=== PATIENT | male | born 1955 | race Caucasian/White ===

== ENCOUNTER 2017-06-05 21:52 | Inpatient (IN) | payer BC ==
[~2017-06-05] VITALS: Ht 182.9 cm; Wt 112.5 kg
[~2017-06-05 21:52] MED LIST: ALBU0.63 NEB; BENZ100 PO; DESL5TAB4 PO; LEVA750T PO; METO1TAB42 PO; PRED20 PO; QUIN20TA4 PO
[2017-06-05 21:59] VITALS: BP 175/108; PULSE 104; RESP 14; TEMP 98.7; O2SAT 97
[2017-06-05 22:13] VITALS: BP_SYST 134; BP_SYST 135; BP_DIAS 81; BP_DIAS 84
--- NOTE | 2017-06-05 22:13 | PD ---
HPI Chief Complaint: Chest pressure Time Seen by Provider: 21:56 Travel History International Travel<30 days: No Contact w/Intl Traveler<30days: No Traveled to known affect area: No History of Present Illness HPI The patient is a 62-year-old male who presents to the emergency department via EMS for chest pressure. The patient states he is currently under a lot of stress, was recently in [place] with his daughter who is having medical problems. The patient then received a phone call from his stating she may need to have back surgery once again and he drove from [place] to [place] last night. The patient states he had approximately 4 Mountain Dew kick start drinks while traveling. The patient then developed palpitations and some dizziness earlier today. The patient took a nap for approximately 1 hour, and then got up and started working on his bike. The patient then developed some chest pressure that radiated to the neck and into the jaw bilaterally with diaphoresis. He also had some mild shortness of breath. The patient sat down on the couch and the symptoms did improve. The patient does have a history of hypertension but did not take his medications for high blood pressure last night or this morning. He did take losartan approximately 1 hour prior to arrival. He does have a history of hypertension but denies any history of hyperlipidemia, tobacco use, diabetes, or known CAD. The patient does have a history of sarcoidosis. He did complain of mild shortness of breath but denies any history of pulmonary embolism or DVT. He denies any significant edema to the lower extremities. PFSH Past Medical History Hypertension: Yes Respiratory: Yes (SARCOIDOSIS) Social History Alcohol Use: Yes (occasionally) Tobacco Use: No Substance Use: No Allergies-Medications (Allergen,Severity, Reaction): Coded Allergies: penicillin G (Unverified Allergy, Intermediate, ITCHING, 06/05/17) Reported Meds & Prescriptions Reported Meds & Active Scripts Active Reported Belviq (Lorcaserin) 10 Mg Tab 20 Mg PO DAILY Pantoprazole (Pantoprazole Sodium) 40 Mg Tab 40 Mg PO DAILY Desloratadine 5 Mg Tab 5 Mg PO DAILY Losartan (Losartan Potassium) 50 Mg Tab 50 Mg PO BID Review of Systems Except as stated in HPI: all other systems reviewed are Neg General / Constitutional: No: Fever HENT: Positive: Lightheadedness Cardiovascular: Positive: Chest Pain or Discomfort, Palpitations, Diaphoresis Respiratory: Positive: Shortness of Breath Gastrointestinal: No: Nausea, Vomiting, Abdominal Pain Musculoskeletal: No: Weakness, Edema Neurologic: Positive: Dizziness, No: Weakness, Focal Abnormalities, Paresthesia , Sensory Disturbance Physical Exam Narrative GENERAL: Awake, alert, pleasant 8-year-old male who appears his stated age and is in no acute respiratory distress. SKIN: Focused skin assessment warm/dry. HEAD: Atraumatic. Normocephalic. EYES: No injection or drainage. ENT: No nasal bleeding or discharge. Mucous membranes pink and moist. NECK: Trachea midline. No JVD. CARDIOVASCULAR: Regular, tachycardic with a heart rate of 105. RESPIRATORY: No accessory muscle use. Clear to auscultation. Breath sounds equal bilaterally. GASTROINTESTINAL: Abdomen soft, non-tender, nondistended. MUSCULOSKELETAL: No obvious deformities. No clubbing. No cyanosis. No edema. Calves are soft bilaterally. NEUROLOGICAL: Awake and alert. No obvious cranial nerve deficits. Motor grossly within normal limits. Normal speech. PSYCHIATRIC: Appropriate mood and affect; insight and judgment normal. Data Data Last Documented VS Vital Signs Date Time Temp Pulse Resp B/P (MAP) Pulse Ox O2 Delivery O2 Flow Rate FiO2 06/05/17 22:13 97 Nasal Cannula 2.00 06/05/17 22:13 135/84 (101) 134/81 (98) 06/05/17 21:59 98.7 104 14 Orders Orders Electrocardiogram (06/05/17 22:06) Ckmb (Isoenzyme) Profile (06/05/17 22:06) Complete Blood Count With Diff (06/05/17 22:06) Comprehensive Metabolic Panel (06/05/17 22:06) Magnesium (Mg) (06/05/17 22:06) Prothrombin Time / Inr (Pt) (06/05/17 22:06) Act Partial Throm Time (Ptt) (06/05/17 22:06) Troponin I (06/05/17 22:06) Chest, Single Ap (06/05/17 22:06) Ecg Monitoring (06/05/17 22:06) Bilateral Bp Monitoring (06/05/17 22:06) Iv Access Insert/Monitor (06/05/17 22:06) Oximetry (06/05/17 22:06) Oxygen Administration (06/05/17 22:06) Aspirin Chew (Aspirin Chew) (06/05/17 22:15) Nitroglycerin 2% Oint (Nitroglycerin 2% (06/05/17 22:15) Sodium Chloride 0.9% Flush (Ns Flush) (06/05/17 22:15) Sodium Chlorid 0.9% 500 Ml Inj (Ns 500 M (06/05/17 22:15) Ct Pulmonary Angiogram (06/05/17 22:06) CKMB (06/05/17 22:30) CKMB% (06/05/17 22:30) Potassium Chloride (Kcl) (06/06/17 00:00) Iohexol 350 Inj (Omnipaque 350 Inj) (06/06/17 00:15) Admit Order (Ed Use Only) (06/06/17 00:48) Labs Laboratory Tests Test 06/05/17 22:30 White Blood Count 8.7 TH/MM3 Red Blood Count 5.27 MIL/MM3 Hemoglobin 15.8 GM/DL Hematocrit 46.9 % Mean Corpuscular Volume 89.0 FL Mean Corpuscular Hemoglobin 30.0 PG Mean Corpuscular Hemoglobin Concent 33.7 % Red Cell Distribution Width 13.3 % Platelet Count 205 TH/MM3 Mean Platelet Volume 8.9 FL Neutrophils (%) (Auto) 65.0 % Lymphocytes (%) (Auto) 22.2 % Monocytes (%) (Auto) 9.9 % Eosinophils (%) (Auto) 1.6 % Basophils (%) (Auto) 1.3 % Neutrophils # (Auto) 5.7 TH/MM3 Lymphocytes # (Auto) 1.9 TH/MM3 Monocytes # (Auto) 0.9 TH/MM3 Eosinophils # (Auto) 0.1 TH/MM3 Basophils # (Auto) 0.1 TH/MM3 CBC Comment DIFF FINAL Differential Comment Prothrombin Time 10.4 SEC Prothromb Time International Ratio 1.0 RATIO Activated Partial Thromboplast Time 25.4 SEC Blood Urea Nitrogen 20 MG/DL Creatinine 1.09 MG/DL Random Glucose 144 MG/DL Total Protein 7.2 GM/DL Albumin 3.2 GM/DL Calcium Level 9.6 MG/DL Magnesium Level 2.0 MG/DL Alkaline Phosphatase 120 U/L Aspartate Amino Transf (AST/SGOT) 37 U/L Alanine Aminotransferase (ALT/SGPT) 57 U/L Total Bilirubin 0.4 MG/DL Sodium Level 141 MEQ/L Potassium Level 3.3 MEQ/L Chloride Level 108 MEQ/L Carbon Dioxide Level 24.3 MEQ/L Anion Gap 9 MEQ/L Estimat Glomerular Filtration Rate 69 ML/MIN Total Creatine Kinase 170 U/L Creatine Kinase MB 2.8 NG/ML Troponin I 0.07 NG/ML MDM Medical Decision Making Medical Screen Exam Complete: Yes Emergency Medical Condition: Yes Medical Record Reviewed: Yes Interpretation(s) EKG reveals sinus tachycardia with a heart rate of 105. Last Impressions Chest X-Ray 06/05/172205 Signed Impressions: Service Date/Time: Monday, June 05, 2017 22:27 - CONCLUSION: No acute cardiopulmonary disease demonstrated. Alvarez Pena MD CT pulmonary angiogram reveals scattered interstitial densities could be infectious or inflammatory. Biapical densities greater left apex measuring 1.7 cm, likely scarring. Follow-up CT chest in 3 months recommended for stability. No evidence for pulmonary embolism. Mediastinal adenopathy likely secondary to patient's known sarcoidosis. Right adrenal nodule likely adenoma. Laboratory Tests Test 06/05/17 22:30 White Blood Count 8.7 TH/MM3 Red Blood Count 5.27 MIL/MM3 Hemoglobin 15.8 GM/DL Hematocrit 46.9 % Mean Corpuscular Volume 89.0 FL Mean Corpuscular Hemoglobin 30.0 PG Mean Corpuscular Hemoglobin Concent 33.7 % Red Cell Distribution Width 13.3 % Platelet Count 205 TH/MM3 Mean Platelet Volume 8.9 FL Neutrophils (%) (Auto) 65.0 % Lymphocytes (%) (Auto) 22.2 % Monocytes (%) (Auto) 9.9 % Eosinophils (%) (Auto) 1.6 % Basophils (%) (Auto) 1.3 % Neutrophils # (Auto) 5.7 TH/MM3 Lymphocytes # (Auto) 1.9 TH/MM3 Monocytes # (Auto) 0.9 TH/MM3 Eosinophils # (Auto) 0.1 TH/MM3 Basophils # (Auto) 0.1 TH/MM3 CBC Comment DIFF FINAL Differential Comment Prothrombin Time 10.4 SEC Prothromb Time International Ratio 1.0 RATIO Activated Partial Thromboplast Time 25.4 SEC Blood Urea Nitrogen 20 MG/DL Creatinine 1.09 MG/DL Random Glucose 144 MG/DL Total Protein 7.2 GM/DL Albumin 3.2 GM/DL Calcium Level 9.6 MG/DL Magnesium Level 2.0 MG/DL Alkaline Phosphatase 120 U/L Aspartate Amino Transf (AST/SGOT) 37 U/L Alanine Aminotransferase (ALT/SGPT) 57 U/L Total Bilirubin 0.4 MG/DL Sodium Level 141 MEQ/L Potassium Level 3.3 MEQ/L Chloride Level 108 MEQ/L Carbon Dioxide Level 24.3 MEQ/L Anion Gap 9 MEQ/L Estimat Glomerular Filtration Rate 69 ML/MIN Total Creatine Kinase 170 U/L Creatine Kinase MB 2.8 NG/ML Troponin I 0.07 NG/ML Differential Diagnosis Differential diagnosis includes acute coronary syndrome, pulmonary embolism, esophageal spasm, pericarditis, caffeine toxicity, GERD, sarcoidosis exacerbation, pericardial effusion. Narrative Course IV was established, labs are drawn and sent, and the patient was placed on cardiac telemetry monitoring and continuous pulse oximetry monitoring. EKG was ordered and interpreted. The patient was administered aspirin 162 mg orally and nitro paste to the chest wall with IV fluids. Troponin and CPK level were sent to lab. CT pulmonary angiogram was ordered for chest pressure with shortness of breath and tachycardia after prolonged travel. The patient's potassium is low at 3.3, was replaced orally. The patient's troponin was elevated at 0.07. CT pulmonary angiogram is negative for PE. The patient does have a history of hypertension with chest pressure radiating to the neck, and diaphoresis with shortness of breath. Patient will need serial cardiac enzymes and possible evaluation by cardiology if he rules in with increasing troponin levels. The patient's primary physician is Dr. Walter, [facility] Physician Communication Physician Communication [facility] I discussed the patient with Dr. Mistry who agrees with admission. Diagnosis Primary Impression: Non-ST elevation MD (NSTEMI) Admitting Information Admitting Physician Requests: Admit Condition: Stable John Tillman MD Jun 05, 2017 22:13
[2017-06-05] MEDS ORDERED: SODIUM CHLORIDE 0.9% FLUSH 10 ML FLUSH IVF PRN (22:15)
[2017-06-05] MEDS ORDERED: ASPIRIN 81 MG CHEW TAB PO ONE (22:15)
[2017-06-05] MEDS ORDERED: SODIUM CHLORID 0.9% 500 ML INJ 500 ML IV ONE (22:15)
[2017-06-05] MEDS ORDERED: NITROGLYCERIN 2% OINT 1 GM PACKET TOP ONE (22:15)
[2017-06-05] MEDS ORDERED: PANT40TA3 PO (22:23)
[2017-06-05] MEDS ORDERED: LOSA50TA PO (22:23)
[2017-06-05] MEDS ORDERED: LORC10TA24 PO (22:23)
[2017-06-05] MEDS ORDERED: DESL5TAB4 PO (22:23)
--- NOTE | 2017-06-05 22:52 | RADRPT ---
EXAM DATE/TIME: 06/05/2017 22:27 [facility] COMPARISON: No previous studies available for comparison. INDICATIONS : Chest pain. MEDICAL HISTORY : Hypertension. Sarcoidosis. SURGICAL HISTORY : None. ENCOUNTER: Initial ACUITY: 1 day PAIN SCORE: 2/10 LOCATION: chest FINDINGS: A single view of the chest demonstrates the lungs to be symmetrically aerated without evidence of mas s, infiltrate or effusion. The cardiomediastinal contours are unremarkable. Osseous structures are intact. CONCLUSION: No acute cardiopulmonary disease demonstrated. Alvarez Pena MD on June 05, 2017 at 22:49 Board Certified Radiologist. This report was verified electronically.
[2017-06-05 22:53] LABS: AUTOMATED NEUTROPHIL # 5.7 TH/MM3 (1.8-7.7); BASOPHIL # 0.1 TH/MM3 (0-0.2); BASOPHIL % 1.3 % (0.0-2.0); EOSINOPHIL # 0.1 TH/MM3 (0-0.4); EOSINOPHIL % 1.6 % (0.0-4.0); HEMATOCRIT 46.9 % (39.0-51.0); HEMOGLOBIN 15.8 GM/DL (13.0-17.0); LYMPH % 22.2 % (9.0-44.0); LYMPHOCYTE # 1.9 TH/MM3 (1.0-4.8); MEAN CORPUSCULAR HGB CONC 33.7 % (32.0-36.0); MEAN PLATELET VOLUME 8.9 FL (7.0-11.0); MONO % 9.9 % (0.0-8.0); MONOCYTE # 0.9 TH/MM3 (0-0.9); PLATELET COUNT 205 TH/MM3 (150-450); RED BLOOD COUNT 5.27 MIL/MM3 (4.50-5.90); RED CELL DISTRIBUTION WIDTH 13.3 % (11.6-17.2); WHITE BLOOD COUNT 8.7 TH/MM3 (4.0-11.0)
[2017-06-05 23:00] VITALS: BP 119/80; PULSE 90; RESP 22; O2SAT 98
[2017-06-05 23:02] LABS: PROTHROMBIN TIME - PATIENT 10.4 SEC (9.8-11.6)
[2017-06-05 23:05] LABS: ALBUMIN 3.2 GM/DL (3.4-5.0); AST (GOT) 37 U/L (15-37); BICARBONATE 24.3 MEQ/L (21.0-32.0); BLOOD UREA NITROGEN 20 MG/DL (7-18); CALCIUM 9.6 MG/DL (8.5-10.1); CHLORIDE 108 MEQ/L (98-107); CREATININE 1.09 MG/DL (0.60-1.30); GLOMERULAR FILTRATION RATE 69 ML/MIN (>89); GLUCOSE,RANDOM 144 MG/DL (74-106); SODIUM (NA) 141 MEQ/L (136-145)
[2017-06-05 23:06] LABS: ALT (GPT) 57 U/L (12-78)
[2017-06-05 23:10] LABS: ALKALINE PHOSPHATASE 120 U/L (45-117); TOTAL BILIRUBIN ADULT 0.4 MG/DL (0.2-1.0); TOTAL PROTEIN 7.2 GM/DL (6.4-8.2); TROPONIN I 0.07 NG/ML (0.02-0.05)
[2017-06-06] VITALS (11 sets, daily range): BP systolic 107–154; BP diastolic 60–91; PULSE 57–82; RESP 16–20; TEMP 97.6–98.4; O2SAT 94–98
[2017-06-06] MEDS ORDERED: POTASSIUM CHLORIDE 20 MEQ CONTROLLED RELEASE TAB PO ONE
[2017-06-06] MEDS ORDERED: IOHEXOL 350 MG/ML 10 ML VIAL (for RAD DIAG) IVCONTRAST ONE (00:15)
--- NOTE | 2017-06-06 00:28 | RADRPT ---
EXAM DATE/TIME: 06/06/2017 00:13 This report includes an Addendum and supersedes previous reports for this exam. [facility] COMPARISON: CHEST SINGLE AP, June 05, 2017, 22:27. INDICATIONS : Chest pain, shortness of breath. IV CONTRAST: 75 cc Omnipaque 350 (iohexol) IV RADIATION DOSE: 12.53 CTDIvol (mGy) MEDICAL HISTORY : Hypertension. Sarcoidosis. SURGICAL HISTORY : None. ENCOUNTER: Initial ACUITY: 2 days PAIN SCALE: 8/10 LOCATION: chest TECHNIQUE: Volumetric scanning of the chest was performed using a pulmonary embolism protocol MIP images were re constructed. Using automated exposure control and adjustment of the mA and/or kV according to patien t size, radiation dose was kept as low as reasonably achievable to obtain optimal diagnostic quality images. DICOM format image data is available electronically for review and comparison. Follow-up recommendations for detected pulmonary nodules are based at a minimum on nodule size and pa tient risk factors according to Fleischner Society Guidelines. FINDINGS: PULMONARY ARTERIES: No filling defects are seen in the pulmonary arteries through the segmental level. LUNGS: There is no consolidation or pneumothorax . No concerning pulmonary nodule is visualized. Scattered interstitial densities in the upper lobes. Apical parenchymal densities greater left apex measuring 1 .7 x 1.2 cm. PLEURAE: There is no pleural thickening or pleural effusion. MEDIASTINUM: There is good visualization of the great vessels of the middle mediastinum. Prominent mediastinal rommel nopathy including distal right paratracheal measuring 1.27 her short axis. Right hilar adenopathy nick sures 2.3 cm. Subcarinal adenopathy measures 1.8 cm. MUSCULOSKELETAL: Within normal limits for patient age. MISCELLANEOUS: The visualized upper abdominal organs demonstrate right adrenal nodule measuring 2.4 cm.. CONCLUSION: 1. Scattered interstitial densities could be infectious or inflammatory. 2. Biapical densities greater left apex measuring 1.7 cm, likely scarring. Followup CT chest in 3 mon ths recommended for stability. 3. No evidence for pulmonary embolism. 4. Mediastinal adenopathy likely secondary to patient's known sarcoidosis. 5. Right adrenal nodule likely adenoma. Kris Martínez MD on June 06, 2017 at 0:22 Board Certified Radiologist. This report was verified electronically. ADDENDUM: Discussed the above study with Dr. Alvarez Alexandre from pulmonology. He informed me that the patient had a prior CT scan on an outpatient basis. Patient did in fact have a prior CT from 09-22-[address] [facility]. The nodular densities and hilar adenopathy described above were present previously a nd are unchanged. The nodule in the right adrenal gland is also stable. Boubacar Metz MD on June 06, 2017 at 17:57 Board Certified Radiologist. This report was verified electronically.
[2017-06-06] MEDS ORDERED: SODIUM CHLORIDE 0.9% FLUSH 10 ML FLUSH IV FLUSH PRN ×2 (01:00→15:15)
[2017-06-06] MEDS ORDERED: SENNOSIDES 8.6 MG TAB PO PRN (01:00)
[2017-06-06] MEDS ORDERED: BISACODYL 10 MG SUPP RECTAL PRN (01:00)
[2017-06-06] MEDS ORDERED: MAGNESIUM HYDROXIDE SUSP 30 ML CUP PO PRN (01:00)
[2017-06-06] MEDS ORDERED: NALOXONE HCL 0.4 MG/ML AMP IV PUSH PRN (01:00)
[2017-06-06] MEDS ORDERED: LACTULOSE SYRUP 20 GM/30 ML CUP PO PRN (01:00)
[2017-06-06] MEDS ORDERED: PANTOPRAZOLE SODIUM 40 MG VIAL IV PUSH ONE (01:45)
--- NOTE | 2017-06-06 01:58 | HHI.HP ---
HPI Service [facility] Primary Care Physician Aman Walter MD Admission Diagnosis NSTEMI, elevated troponin Diagnoses: Travel History International Travel<30 Days: No Contact w/Intl Traveler <30 Da: No Traveled to Known Affected Are: No History of Present Illness 62-year-old male with a past medical history significant for sarcoidosis, hypertension and GERD presents to the emergency department for evaluation of chest pain. The patient drove down from [place] last night and drank for kick start energy drinks. He arrived to [facility] around 10 AM and had a burning sensation in his chest which he thought was likely reflux. He began to have heart palpitations but then took a nap. Upon waking he was working around the house when he noticed jaw pain followed by dizziness. While watching television the patient then had an episode of crushing, substernal chest pain/ pressure with accompanying shortness of breath and diaphoresis. He reports the episode lasted approximately 1-2 minutes. He had 3 total episodes and his called 911 for further evaluation. He denies any abdominal pain. No fever/ chills, no nausea/vomiting/diarrhea. No lateralizing signs/symptoms. Review of Systems Except as stated in HPI: all other systems reviewed are Neg Past Family Social History Past Medical History Sarcoidosis Hypertension GERD Past Surgical History Lung biopsy Right knee arthroscopic 2 L4-L5 discectomy Deviated septum Reported Medications Reported Meds & Active Scripts Active Reported Belviq (Lorcaserin) 10 Mg Tab 20 Mg PO DAILY Pantoprazole (Pantoprazole Sodium) 40 Mg Tab 40 Mg PO DAILY Desloratadine 5 Mg Tab 5 Mg PO DAILY Losartan (Losartan Potassium) 50 Mg Tab 50 Mg PO BID Allergies: Coded Allergies: penicillin G (Unverified Allergy, Intermediate, ITCHING, 06/05/17) Family History Mother with CVA Social History Denies tobacco. Rare alcohol. Denies illicit drugs. Physical Exam Vital Signs Vital Signs Date Time Temp Pulse Resp B/P (MAP) Pulse Ox O2 Delivery O2 Flow Rate FiO2 06/05/17 22:13 97 Nasal Cannula 2.00 06/05/17 22:13 98 Nasal Cannula 2.00 06/05/17 22:13 135/84 (101) 134/81 (98) 06/05/17 21:59 98.7 104 14 175/108 (130) 97 Physical Exam GENERAL: male sitting up in bed SKIN: No rashes, ecchymoses or lesions. Cool and dry. HEAD: Atraumatic. Normocephalic. No temporal or scalp tenderness. EYES: Pupils equal round and reactive. Extraocular motions intact. No scleral icterus. No injection or drainage. ENT: Nose without bleeding, purulent drainage or septal hematoma. Throat without erythema, tonsillar hypertrophy or exudate. Uvula midline. Airway patent. NECK: Trachea midline. No JVD or lymphadenopathy. Supple, nontender, no meningeal signs. CARDIOVASCULAR: Regular rate and rhythm without murmurs, gallops, or rubs. RESPIRATORY: Clear to auscultation. Breath sounds equal bilaterally. No wheezes , rales, or rhonchi. GASTROINTESTINAL: Abdomen soft, non-tender, nondistended. No hepato-splenomegaly , or palpable masses. No guarding. MUSCULOSKELETAL: Extremities without clubbing, cyanosis, or edema. No joint tenderness, effusion, or edema noted. No calf tenderness. NEUROLOGICAL: Awake and alert. Cranial nerves II through XII intact. Motor and sensory grossly within normal limits. Normal speech. Laboratory Laboratory Tests Test 06/05/17 22:30 White Blood Count 8.7 Red Blood Count 5.27 Hemoglobin 15.8 Hematocrit 46.9 Mean Corpuscular Volume 89.0 Mean Corpuscular Hemoglobin 30.0 Mean Corpuscular Hemoglobin Concent 33.7 Red Cell Distribution Width 13.3 Platelet Count 205 Mean Platelet Volume 8.9 Neutrophils (%) (Auto) 65.0 Lymphocytes (%) (Auto) 22.2 Monocytes (%) (Auto) 9.9 Eosinophils (%) (Auto) 1.6 Basophils (%) (Auto) 1.3 Neutrophils # (Auto) 5.7 Lymphocytes # (Auto) 1.9 Monocytes # (Auto) 0.9 Eosinophils # (Auto) 0.1 Basophils # (Auto) 0.1 CBC Comment DIFF FINAL Differential Comment Prothrombin Time 10.4 Prothromb Time International Ratio 1.0 Activated Partial Thromboplast Time 25.4 Blood Urea Nitrogen 20 Creatinine 1.09 Random Glucose 144 Total Protein 7.2 Albumin 3.2 Calcium Level 9.6 Magnesium Level 2.0 Alkaline Phosphatase 120 Aspartate Amino Transf (AST/SGOT) 37 Alanine Aminotransferase (ALT/SGPT) 57 Total Bilirubin 0.4 Sodium Level 141 Potassium Level 3.3 Chloride Level 108 Carbon Dioxide Level 24.3 Anion Gap 9 Estimat Glomerular Filtration Rate 69 Total Creatine Kinase 170 Creatine Kinase MB 2.8 Troponin I 0.07 Result Diagram: 06/05/17222906/05/172229 Caprini VTE Risk Assessment Caprini VTE Risk Assessment: Mod/High Risk (score >= 2) Caprini Risk Assessment Model Point Value = 1 Point Value = 2 Point Value = 3 Point Value = 5 Age 41-60 Minor surgery BMI > 25 kg/m2 Swollen legs Varicose veins or History of unexplained or recurrent spontaneous Oral contraceptives or hormone replacement Sepsis (< 1 month) Serious lung disease, including pneumonia (< 1 month) Abnormal pulmonary function Acute myocardial infarction Congestive heart failure (< 1 month) History of inflammatory bowel disease Medical patient at bed rest Age 61-74 Arthroscopic surgery Major open surgery (> 45 min) Laparoscopic surgery (> 45 min) Malignancy Confined to bed (> 72 hours) Immobilizing plaster cast Central venous access Age >= 75 History of VTE Family history of VTE Factor V Leiden Prothrombin [id number] Lupus anticoagulant Anticardiolipin antibodies Elevated serum homocysteine Heparin-induced thrombocytopenia Other congenital or acquired thrombophilia Stroke (< 1 month) Elective arthroplasty Hip, pelvis, or leg fracture Acute spinal cord injury (< 1 month) Prophylaxis Regimen Total Risk Factor Score Risk Level Prophylaxis Regimen 0-1 Low Early ambulation 2 Moderate Order ONE of the following: *Sequential Compression Device (SCD) *Heparin 5000 units SQ BID 3-4 Higher Order ONE of the following medications: *Heparin 5000 units SQ TID *Enoxaparin/Lovenox 40 mg SQ daily (WT < 150 kg, CrCl > 30 mL/min) *Enoxaparin/Lovenox 30 mg SQ daily (WT < 150 kg, CrCl > 10-29 mL/min) *Enoxaparin/Lovenox 30 mg SQ BID (WT < 150 kg, CrCl > 30 mL/min) AND/OR *Sequential Compression Device (SCD) 5 or more Highest Order ONE of the following medications: *Heparin 5000 units SQ TID (Preferred with Epidurals) *Enoxaparin/Lovenox 40 mg SQ daily (WT < 150 kg, CrCl > 30 mL/min) *Enoxaparin/Lovenox 30 mg SQ daily (WT < 150 kg, CrCl > 10-29 mL/min) *Enoxaparin/Lovenox 30 mg SQ BID (WT < 150 kg, CrCl > 30 mL/min) AND *Sequential Compression Device (SCD) Assessment and Plan Assessment and Plan Assessment/plan: 1. Elevated troponin/chest pain/pressure Concern for NSTEMI EKG showed normal sinus rhythm, no ST segment elevations or depressions, personally reviewed Initial troponin 0 0.07 ACS rule out pending; serial troponins/EKGs If troponin continues to elevate we will start heparin drip Aspirin Morphine Nitro paste Coreg Cardiology consulted, appreciate recommendations 2. Hypertension Coreg 3. GERD Continue home Protonix 4. Sarcoidosis Continue outpatient follow up 5. Hypokalemia Status post repletion in the emergency department Follow-up BMP FEN NPO NS at 100 cc/hr Electrolytes: As above Heparin Physician Certification 2 Midnight Certification Type: Admission for Inpatient Services Order for Inpatient Services The services are ordered in accordance with Medicare regulations or non- Medicare payer requirements, as applicable. In the case of services not specified as inpatient-only, they are appropriately provided as inpatient services in accordance with the 2-midnight benchmark. Estimated LOS (days): 2 2 days is the estimated time the patient will need to remain in the hospital, assuming treatment plan goals are met and no additional complications. Post-Hospital Plan: Not yet determined Lucia Mistry MD Jun 06, 2017 01:57
[2017-06-06] MEDS: SODIUM CHLOR 0.9% 1000 ML INJ 1,000 ML IV SCH ×3 (02:27→20:06)
[2017-06-06] MEDS: MORPHINE SULFATE 4 MG/ML INJ IV PUSH PRN ×3 (03:40→20:05)
[2017-06-06] MEDS: ONDANSETRON HCL 4 MG/2 ML VIAL IVP PRN ×2 (03:45→12:10)
[2017-06-06 04:58] LABS: AUTOMATED NEUTROPHIL # 3.6 TH/MM3 (1.8-7.7); BASOPHIL # 0.1 TH/MM3 (0-0.2); BASOPHIL % 0.9 % (0.0-2.0); EOSINOPHIL # 0.1 TH/MM3 (0-0.4); EOSINOPHIL % 2.2 % (0.0-4.0); HEMATOCRIT 43.6 % (39.0-51.0); HEMOGLOBIN 14.7 GM/DL (13.0-17.0); LYMPH % 31.4 % (9.0-44.0); LYMPHOCYTE # 2.1 TH/MM3 (1.0-4.8); MEAN CELL VOLUME 88.4 FL (80.0-100.0); MEAN CORPUSCULAR HEMOGLOBIN 29.7 PG (27.0-34.0); MEAN CORPUSCULAR HGB CONC 33.7 % (32.0-36.0); MEAN PLATELET VOLUME 8.6 FL (7.0-11.0); MONO % 10.2 % (0.0-8.0); MONOCYTE # 0.7 TH/MM3 (0-0.9); NEUT % 55.3 % (16.0-70.0); PLATELET COUNT 180 TH/MM3 (150-450); RED BLOOD COUNT 4.94 MIL/MM3 (4.50-5.90); RED CELL DISTRIBUTION WIDTH 13.5 % (11.6-17.2); WHITE BLOOD COUNT 6.6 TH/MM3 (4.0-11.0)
[2017-06-06 05:08] LABS: BICARBONATE 26.6 MEQ/L (21.0-32.0); CREATININE 0.97 MG/DL (0.60-1.30)
[2017-06-06 05:20] LABS: TROPONIN I 0.04 NG/ML (0.02-0.05)
[2017-06-06] MEDS: HEPARIN SODIUM - SQ 10,000 UNITS/ML VIAL SQ SCH ×2 (06:10→13:09)
[2017-06-06] MEDS: ACETAMINOPHEN 325 MG TAB PO PRN ×3 (06:11→22:33)
[2017-06-06] MEDS: CARVEDILOL 3.125 MG TAB PO SCH ×2 (08:48→20:05)
[2017-06-06] MEDS: PANTOPRAZOLE SOD 40 MG DELAYED RELEASE TAB PO SCH (08:48)
[2017-06-06] MEDS: SODIUM CHLORIDE 0.9% FLUSH 10 ML FLUSH IV FLUSH SCH ×3 (08:49→20:06)
[2017-06-06] MEDS ORDERED: ASPIRIN EC 325 MG TABEC PO SCH (09:00)
--- NOTE | 2017-06-06 10:47 | HHI.PR ---
Subjective Remarks F/U CP. Ongoing chest tightness past 30 mins no radiation and aso ssx this time dw RN. He also has chronic cough no change denies fever, chills and shortness of breath. Objective Vitals Vital Signs Date Time Temp Pulse Resp B/P (MAP) Pulse Ox O2 Delivery O2 Flow Rate FiO2 06/06/17 08:00 65 06/06/17 08:00 97.9 65 16 110/60 (77) 97 06/06/17 04:30 97.6 63 16 107/62 (77) 97 06/06/17 04:23 06/06/17 04:00 57 06/06/17 02:00 74 17 130/81 (97) 97 Room Air 06/06/17 01:00 80 20 132/84 (100) 98 Room Air 06/06/17 00:00 82 20 112/82 (92) 98 Room Air 06/05/17 23:00 90 22 119/80 (93) 98 Room Air 06/05/17 22:13 97 Nasal Cannula 2.00 06/05/17 22:13 98 Nasal Cannula 2.00 06/05/17 22:13 135/84 (101) 134/81 (98) 06/05/17 21:59 98.7 104 14 175/108 (130) 97 I/O 06/05/17 06/05/17 06/05/17 06/06/17 06/06/17 06/06/17 06:59 14:59 22:59 06:59 14:59 22:59 Intake Total 500 ml Output Total 400 ml Balance 100 ml Intake IV Total 500 ml Output Urine Total 400 ml # Voids 2 Result Diagram: 06/06/170 06/06/17419 Imaging Last Impressions Chest X-Ray 06/05/172205 Signed Impressions: Service Date/Time: Monday, June 05, 2017 22:27 - CONCLUSION: No acute cardiopulmonary disease demonstrated. Alvarez Pena MD CT Angiography 06/05/172205 Signed Impressions: Service Date/Time: May 00:13 - CONCLUSION: 1. Scattered interstitial densities could be infectious or inflammatory. 2. Biapical densities greater left apex measuring 1.7 cm, likely scarring. Followup CT chest in 3 months recommended for stability. 3. No evidence for pulmonary embolism. 4. Mediastinal adenopathy likely secondary to patient's known sarcoidosis. 5. Right adrenal nodule likely adenoma. Kris Martínez MD Objective Remarks GENERAL: male sitting up in bed SKIN: No rashes, ecchymoses or lesions. Cool and dry. CARDIOVASCULAR: Regular rate and rhythm without murmurs, gallops, or rubs. No chest wall tenderness RESPIRATORY: Clear to auscultation. Breath sounds equal bilaterally. No wheezes , rales, or rhonchi. GASTROINTESTINAL: Abdomen soft, non-tender, nondistended. No guarding. MUSCULOSKELETAL: Extremities without clubbing, cyanosis, or edema. No joint tenderness, effusion, or edema noted. No calf tenderness. NEUROLOGICAL: Awake and alert. Cranial nerves II through XII intact. Motor and sensory grossly within normal limits. Normal speech. Procedures Fot cardiac cath A/P Problem List: (1) Non-ST elevation [place] (NSTEMI) ICD Code: I21.4 - Non-ST elevation (NSTEMI) myocardial infarction Status: Acute Assessment and Plan 1. Elevated troponin/chest pain/pressure Concern for NSTEMI EKG showed normal sinus rhythm, no ST segment elevations or depressions, personally reviewed Initial troponin 0 0.07 ACS rule out pending; serial troponins/EKGs If troponin continues to elevate we will start heparin drip Aspirin Morphine Nitro paste Coreg Cardiology consulted, appreciate recommendations. Keep n.p.o. 2. Hypertension Coreg 3. GERD Continue home Protonix 4. Sarcoidosis, scattered interstitial densities could be infectious or inflammatory and biapical densities greater left apex measuring 1.7 cm centimeter. Will consult pulmonary 5. Hypokalemia Status post repletion in the emergency department Follow-up BMP 6. Right adrenal gland adenoma. Outpatient follow-up FEN NPO NS at 100 cc/hr Electrolytes: As above Heparin Discharge Planning Per cardiology and pulmonary Leonardo Ray MD Jun 06, 2017 10:47
[2017-06-06] MEDS: NITROGLYCERIN 0.4 MG SL 25 TABS/BTL SL PRN ×3 (11:31→11:44)
[2017-06-06 11:59] LABS: TROPONIN I 0.02 NG/ML (0.02-0.05)
[2017-06-06] MEDS: NITROGLYCERIN 2% OINT 1 GM PACKET TOP SCH ×2 (12:14→22:32)
[2017-06-06] MEDS ORDERED: MIDAZOLAM HCL 2 MG/2 ML VIAL ONE (14:04)
[2017-06-06] MEDS ORDERED: HEPARIN-NS/PF FLUSH BAG 2,000 ML IV FLUSH ONE (14:04)
--- NOTE | 2017-06-06 14:47 | MB ---
cc: Garrett Maya MD DATE: 06/06/2017 HISTORY OF PRESENT ILLNESS: Rafael is a very pleasant 62-year-old gentleman with no significant past cardiovascular history, who was in [place], got a phone call about his requiring urgent medical procedure and he drove all night from [place] to [place], drank several energy drinks and then developed chest pain associated with palpitations, near-syncope. The chest pain radiated to the neck, jaw bilaterally associated with diaphoresis. It was noted to be pressure-like. It was associated with mild shortness of breath. Symptoms were relieved with rest. He otherwise denies any fever, chills, cough, GI or bleeding, PND, orthopnea or dizziness. PAST MEDICAL HISTORY: Includes sarcoidosis. SOCIAL HISTORY: Drinks alcohol occasionally. Tobacco use: None. ALLERGIES: PENICILLIN G. MEDICATIONS PRIOR TO ADMISSION:\ 1. Belviq. 2. Pantoprazole. 3. Desloratadine. 4. Losartan 50 mg b.i.d. MEDICATIONS IN THE HOSPITAL: 1. 1/2-inch nitro paste q. 8 hours. 2. Carvedilol 3.25 hours q. 12 hours. 3. Pantoprazole 40 mg daily. 4. Aspirin 325 daily. 5. Heparin 5000 subcutaneous every 8 hours. PHYSICAL EXAMINATION: VITAL SIGNS: Blood pressure 154/91, pulse 55, respiration 18, temperature 97.8. Initially blood pressure in the ER was 175/108. GENERAL: He is alert and oriented x3, in no acute distress. NECK: Supple. No JVD. No bruit. CARDIOVASCULAR: S1, S2. No murmurs, rubs or gallops. LUNGS: Clear to auscultation bilaterally. ABDOMEN: Soft, nontender, nondistended with positive bowel sounds. EXTREMITIES: No lower extremity edema. LABORATORY DATA: EKG - Sinus tachycardia at 105 beats per minute, otherwise normal. Chest X-ray: No acute cardiopulmonary disease demonstrated. CT of the Chest: Scattered interstitial densities, could be infectious or inflammatory. Biapical densities greater left apex measuring 1.7 cm, likely scarring. No evidence for pulmonary embolism. Mediastinal adenopathy, likely secondary to the patient's known sarcoidosis. Right adrenal nodule, likely adenoma. LABORATORY DATA: White count 6.6, hemoglobin 14.7, hematocrit 43.6, platelet count is 180. Sodium 142. Initial potassium 3.3, repeat potassium 4.1; chloride 109, bicarbonate 26.6, BUN 19, creatinine 0.97. Troponin is 0.07, followed by 0.04 and 0.02. DIAGNOSES: 1. Atn-LM-fepwfptts myocardial infarction. 2. Hypertension. 3. Sarcoidosis. 4. Hypokalemia. 5. Hyperglycemia. RECOMMENDATIONS: Left heart catheterization is medically necessary due to non-STEMI and multiple cardiac risk factors. I have explained to the patient the risks of catheterization and PCI is 5-10% chance of , stroke, heart attack, bleeding, infection, need for bypass surgery, surgery for dialysis, blood transfusion, bleeding, infection, anaphylaxis and arrhythmia. The patient understands and consents to proceed with the procedure. Further recommendations based on the details of his coronary anatomy and physiology. MD AURELIA Dennis/RADHA , 02:27 PM , 02:46 PM
--- NOTE | 2017-06-06 15:02 | CATHPROC ---
[facility] HIS Report Study Information Study Number Admission Scheduled Start Study Start [id number] Jun 06 2017 12:49AM 06/06/2017 Jun 06 2017 1:33PM [place] [facility] Cardiac Catheterization Admit Source Facility Department Emergency department [facility] - [facility] General Physician and Clinical Staff Initial Garrett Reese Vice President Of Nursing Cleve Brar,LACEY Vice President Of Nursing Wilda Amado,LACEY Recorder Kelsey Samuels,RT(R) Scrub Saskia Frey ,RT(R) Procedures Performed Procedure Location (Site) Vessel Name Coronary Angiograms LCA Left Coronary Coronary Angiograms RCA Right Coronary L Heart Cath LV Gram-hand inj. LV LV Ventricle Equipment Time Director Of Photography Description Size Mfg Part Number Used/Scraped TRANSDUCER, TRUWAVE [id number] 13:39 SANCHEZ WALTERS * Used W/STOCKCOCK *[id number] [id number] *[id number] *[id number] 13:39 MEDLINE [employer] PACK, CCL CUSTOM * Used *[id number] 13:39 Aditive PACER PEN, SKIN DUAL W/ RULER * Used *[id number] 13:39 [employer] WIRE, 3MMJ .035 180CM 180CM Used *[id number] 13:39 NAMIC MANIFOLD, 4 PORT * Used *[id number] 13:39 NYCOMED OMNIPAQUE, 350 MG, 150ML 150ML [id number] Used [id number] 13:39 Synetiq MEDICAL BLANKET,WARM AIR CCL * Used *[id number] 13:39 TERUMO MEDICAL SHEATH, FR4 TERUMO (10CM) FR 4 Used *[id number] History: Current Medications Medication Dosage/Unit Route Frequency Last Date/Time Taken Beta Troy ASA History: Allergies Allergy Reaction Penicillin ITCHING penicillin G ITCHING History: Risk Factors Family History of Hypertension Premature CAD Yes Yes History: Symptoms/Diagnosis Selection Items Chest pain Palpitations SOB History: Other Disease Selection Items Gerd HTN Labs Hgb (g/dl) Hct (%) WBC (l/cumm) Platelets (thousands) 11.60-17.00 35.00-51.00 4.00-11.00 150.00-450.00 14.7 42.6 6.6 180 Glucose (mg/dl) BUN (mg/dl) Creatinine (mg/dl) BUN:Creatinine (1:x) 74.00-106.00 7.00-18.00 0.50-1.30 10.00-20.00 99 19 0.9 21.1 Na (meq/l) K (meq/l) 136.00-145.00 3.50-5.10 142 4.1 INR (PTT:PT) 0.90-1.10 1 Troponin I (ng/ml) CPK (u/l) CPK-MB (ng/ML) 0.02-0.05 26.00-308.00 0.50-3.60 0.02 95 2.8 Medication Medication Total Dose (Bolus/Oral) Medication Total Dosage/Unit 1% XYLOCAINE 20 mL FENTANYL 50 mcg VERSED 2 mg Medications (Bolus/Oral) Medication Time Given Dosage/Unit Administered By Reason VERSED 06/06/2017 2:12:40 PM 1 mg Aneudy, Wilda 1 mg VERSED given in lab by Wilda Amado RN in Left Arm via Peripheral IV. Ordered by Guanako Maya. VERSED 06/06/2017 2:31:50 PM 1 mg Aneudy, Wilda 1 mg VERSED given in lab by Wilda Amado RN in Left Arm via Peripheral IV. Ordered by Guanako Maya. FENTANYL 06/06/2017 2:32:10 PM 50 mcg Wilda Amado 50 mcg FENTANYL given in lab by Wilda Amado RN in Left Arm via Peripheral IV. Ordered by Garrett Maya. 1% XYLOCAINE 06/06/2017 2:32:25 PM 20 mL Garrett Maya 20 mL 1% XYLOCAINE given in lab by Garrett Maya in Right Groin via Subcutaneous. Medication (Drip) Medication Time Given Dosage/Unit Concentration/Unit Diluent (ml) Solution IV Solutions 06/06/2017 1:58:35 PM 50 mL (IV) NaCl .9 IV Solutions given in lab by Wilda Amado RN in Left Arm via Peripheral IV. Pump/Drip Flow using N aCl .9. Initial Case Assessment Cardiovascular HR Rhythm NIBP 66 SR 119/69 Circulatory - Right Pulses Dorsalis Pedis Femoral 2 3 Scale (0,1,2,3,4,d) Circulatory - Left Pulses Dorsalis Pedis Femoral 2 3 Scale (0,1,2,3,4,d) Neurological State Oriented to time-place- Alert Moves all extremities person Respiration - General Respiration Rate SpO2 (%) (B/min) 16 96 Chronological Log Time Study Chronological Log 13:58:21 Patient arrived via Bed. 13:58:21 Patient Name, D.O.B, / Armband Verified By R.N. 13:58:22 Consent signed by the physician and the patient and verified by the [facility] General staff. 13:58:23 Pre-op and post- op instructions given; patient acknowledges understanding of instructions. 13:58:24 Verbal Stimulation=2 Physical Stimulation=2 Airway=2 Respiration=2 TOTAL=8. (0=absent, 1=li mited, 2=present) 13:58:27 Presedation assessment performed by Laborer General RN. 13:58:29 Patient has been NPO for More than 6Hrs. 13:58:29 Skin Breakdown- none per pt 13:58:30 Patient Warmer Placed on the Table. 13:58:32 Darshana Prominences Protected 13:58:34 A # 20 IV was noted in the Upper Arm (left). Grade = 0 13:58:34 A # 20 IV was noted in the Hand (right). Grade = 0 13:58:35 IV Solutions given in lab by Wilda Amado, LACEY in Left Arm via Peripheral IV. Pump/Drip Fl ow using NaCl .9. 13:58:36 History and physical on the chart or being dictated. Assessment: Initial Case, HR=66 BPM, Rhythm=SR, OTDO=566/69 mmhg Right Pulses: Desean Ped=2, Femoral=3 13:58:37 Left Pulses: Desean Ped=2, Femoral=3 Neurological: State=Alert, Ox3, SCOTT Respiration: Resp=16 B/min, SpO2=96 % 14:10:58 Bilateral groins prepped with 2% chlorhexidine, and draped after a 3 minute waiting time. Vitals capture started with the following parameters, Patient=Adult, Interval=5 min, Initial Pr xifiik=850 mmHg, 14:12:20 Deflation Rate=5 mmHg, Cuff placed on Unknown 14:12:27 Reference ECG taken 14:12:40 1 mg VERSED given in lab by Wilda Amado, LACEY in Left Arm via Peripheral IV. Ordered by Garrett Medley. 14:12:59 HR=64 bpm, ERJC=630/69 mmhg, SpO2=97.0 %, Resp=14 B/min 14:15:49 MD paged 14:16:48 MD responded 14:17:54 HR=65 bpm, LAMA=577/72 mmhg, SpO2=95.0 %, Resp=16 B/min 14:20:45 Pressure channel 1 zeroed. 14:22:55 HR=63 bpm, SWOB=096/65 mmhg, SpO2=93.0 %, Resp=17 B/min 14:24:56 MD arrived. 14:27:57 HR=62 bpm, FHND=783/73 mmhg, SpO2=95.0 %, Resp=20 B/min Time Out. Correct patient, correct procedure, correct physician, power injector not loaded with contrast with surgical 14:31:27 team present. Time Out Concurred by MD and individual staff in procedure. 14:31:50 1 mg VERSED given in lab by Wilda Amado RN in Left Arm via Peripheral IV. Ordered by Garrett Medley. 14:32:10 Case Start 14:32:10 50 mcg FENTANYL given in lab by Wilda Amado RN in Left Arm via Peripheral IV. Ordered b y Garrett Maya. 14:32:25 20 mL 1% XYLOCAINE given in lab by Garrett Maya in Right Groin via Subcutaneous. 14:32:56 HR=61 bpm, VVRL=454/68 mmhg, SpO2=95 %, Resp=11 B/min 14:33:25 Access site was Right Femoral Artery. 14:33:34 A SHEATH, FR4 TERUMO (10CM) FR 4 was advanced into the Fem Art (right) using the Percutaneo us technique. A JR 4.0 INFINITI CATHETER FR 4 was advanced over a wire. OMNIPAQUE, 350 MG, 150ML 150ML was us ed for 14:34:22 injections. Recorded Pressure: LV, HR=59, Condition=Condition 1 14:35:56 (Left Ventricle) LV 102/9/15 14:36:06 The LV was manually injected with 8 cc's and visualized. OMNIPAQUE, 350 MG, 150ML 150ML us ed. 14:36:29 The RCA was injected and visualized at various angles. OMNIPAQUE, 350 MG, 150ML 150ML use d. 14:37:13 Catheter was removed A JL 4.0 INFINITI CATHETER FR 4 was advanced over a wire. OMNIPAQUE, 350 MG, 150ML 150ML was u sed for 14:37:28 injections. 14:37:59 HR=65 bpm, OPHK=738/69 mmhg, SpO2=96.0 %, Resp=18 B/min Recorded Pressure: Ao, HR=69, Condition=Condition 1 14:38:18 (Aorta) Ao 120/76/96 14:38:48 The LCA was injected and visualized at various angles. OMNIPAQUE, 350 MG, 150ML 150ML use d. 14:40:06 Catheter was removed 14:40:12 Case End 14:42:54 HR=65 bpm, OUGB=671/68 mmhg, SpO2=97.0 %, Resp=16 B/min 14:43:00 Sheath removed; pressure applied to access site. 14:47:57 HR=63 bpm, YAZK=525/68 mmhg, SpO2=97.0 %, Resp=9 B/min 14:52:56 HR=64 bpm, MKLK=215/68 mmhg, SpO2=98.0 %, Resp=18 B/min 15:01:00 Sterile dressing applied to site 15:01:02 Vitals capture stopped. 15:01:04 No case complications noted. 15:01:05 Cine recording checked. 15:01:07 Holding Area notified. 15:01:40 A Left Heart Cath was performed. 15:01:41 Patient moved to [facility] End Study - Contrast Media Used In Study Contrast Total Opened (mL) Total Used (mL) Total Wasted (mL) Omnipaque 40 40 0 End Study - Maximum Contrast Load Max Contrast Load (mL) 611.1 End Study - Radiation Exposure Fluoro Time (minutes) 1.5 End Study - Sheaths Sheaths Pulled By Sheath Hold Time (min) Saskia Frey 20 End Study - Patient Disposition Complications Transferred To Interventional Outcome No Telemetry Bed No attempt made
[2017-06-06] MEDS ORDERED: MISC INFORMATION XX ONE (15:15)
[2017-06-06] MEDS ORDERED: IOHEXOL 350 MG/ML 50 ML BTL (for Cath Lab) OTHER ONE (15:18)
--- NOTE | 2017-06-06 15:45 | MA ---
cc: Garrett Maya MD DATE: 06/06/2017 DATE [phone]. INDICATIONS FOR PROCEDURE: Non-STEMI, hypertension, multiple cardiac risk factors. PROCEDURE NOTE The patient was brought to the cardiac catheterization laboratory, prepped and draped in the usual sterile fashion. 10 mL of 1% Xylocaine was used to locally anesthetize the right common femoral artery. A 4-Norwegian sheath was placed in the right common femoral artery. 4-Norwegian JR4 and JL4 catheters were used to perform left and right coronary angiography and left ventriculography. FINDINGS: LV pressure is 100/15-16. Ejection fraction 70%. Right coronary artery is dominant. There is no significant disease in the right coronary artery. Reference vessel diameter is 5 mm. The right JAYY is a large vessel, 4 mm in diameter with a proximal 50% stenosis. Left circumflex vessel has no significant disease angiographically. The first obtuse marginal vessel is a large 4.0 mm reference vessel diameter with no significant disease angiographically. LAD is large, transapical, reference vessel diameter in the proximal segment of 4.5-5 mm. The first diagonal artery is a large vessel, reference vessel diameter 3.5 mm in diameter, ostial 30% stenosis. The left main actually has a focal 20-30% stenosis seen in the cranial view. This may simply just be the tortuosity of the vessel and a foreshortened view, otherwise does not appear to be any stenosis of the left main. CONCLUSION: 1. Angiographically mild to moderate 3-vessel coronary artery disease in a right dominant system as detailed above. 2. Normal left ventricular systolic function with ejection fraction 70%. RECOMMENDATIONS: Recommend medical management of coronary artery disease, cardiac risk factor modification. MD AURELIA Dennis/RADHA , 03:00 PM , 03:43 PM
[2017-06-06] MEDS ORDERED: BACITRACIN OINT 0.9 GM PKT TOP ONE (16:00)
--- NOTE | 2017-06-06 16:25 | EKG ---
Date Performed: 06/06/2017 Time Performed: 06:02:08 PTAGE: 62 years EKG: Sinus bradycardia. Normal ECG except for rate PREVIOUS TRACING : 06/05/2017 22.06 Since the previous tracing, no significant change not ed DOCTOR: Garrett Maya Interpretating Date/Time 06/06/2017 16:23:33
--- NOTE | 2017-06-06 16:25 | EKG ---
Date Performed: 06/05/2017 Time Performed: 22:06:20 PTAGE: 62 years EKG: SINUS TACHYCARDIA ABNORMAL RHYTHM ECG NO PREVIOUS TRACING DOCTOR: Garrett Maya Interpretating Date/Time 06/06/2017 16:23:26
--- NOTE | 2017-06-06 16:26 | EKG ---
Date Performed: 06/06/2017 Time Performed: 10:47:38 PTAGE: 62 years EKG: Sinus rhythm Normal ECG PREVIOUS TRACING : 06/06/2017 06.02 Since the previous tracing, no significant change noted DOCTOR: Garrett Maya Interpretating Date/Time 06/06/2017 16:23:41
--- NOTE | 2017-06-06 22:32 | MB ---
cc: Kirby Garcia MD DATE: 06/06/2017 REASON FOR CONSULTATION: Pulmonary infiltrates and sarcoidosis. HISTORY OF PRESENT ILLNESS: This is a 62-year-old white male with a past history of sarcoidosis, history of hypertension and prior history of gastroesophageal reflux, has been admitted with chest pains and a burning sensation in the mid chest. The patient has been experiencing some palpitations and he noticed some pains in his neck and jaw and apparently also had a pressure-like sensation and thus was brought to the emergency room. He had some shortness of breath and sweating and upon arrival in the ER, further workup was started for an acute coronary syndrome and now has been admitted for NSTEMI. Meanwhile, he also had a CTA of the chest which reportedly showed patchy bilateral infiltrates as well as apical pleural reactions and some interstitial infiltrates. The patient has had previous CAT scans and upon comparison with the previous CAT scans the nodular and apical infiltrates appear to be unchanged. He denied cough or hemoptysis, fevers, chills or night sweats. The patient has previously been treated for sarcoid, but stopped treatment in 2001. He also had pulmonary function studies done this past year and apparently he was told that everything was okay and he did not require any further treatment for sarcoid. PAST MEDICAL HISTORY: Includes history of hypertension, history of sarcoidosis in remission and history of arthroscopic knee surgery L4 and 5 diskectomy and surgery on a deviated septum of the nose as well as a lung biopsy. HABITS: The patient is a nonsmoker, occasional alcohol use. Presently living here, but was in [place] up until last year. MEDICATIONS: 1. Belviq 20 mg daily. 2. Protonix 40 mg daily. 3. Losartan 50 mg b.i.d. 4. Xyzal 5 mg a day. ALLERGIES: PENICILLIN. FAMILY HISTORY: Significant for strokes. REVIEW OF SYSTEMS: The patient has had no recent weight loss. No headaches or blackouts. No fevers or chills, no night sweats, but had chest pains and pressure with diaphoresis and neck pain and jaw pain. He has no urinary symptoms. Denies GI bleed and no leg or calf muscle pains. He has some joint pains in the extremities, no skin lesions. PHYSICAL EXAMINATION: GENERAL: This is a middle-aged, well built, white male in no acute distress. VITAL SIGNS: Blood pressure 138/80, pulse is 90, respirations 16, temperature is 98.5. HEENT: Head is normocephalic. Pupils are reactive. Tongue is moist. Throat is clear. NECK: Supple. No bruits or thyroid enlargement. CHEST: Equal movements with distant breath sounds and clear lung soliz. HEART: Sounds regular S1 and S2 with no murmur. No S3. ABDOMEN: Soft, benign. No mass. No organomegaly or tenderness. Bowel sounds are active. EXTREMITIES: No lesions, no edema. Normal reflexes. There is no calf tenderness on either side. Carlo sign is negative. Reflexes are 1+ with no gross motor deficit. SKIN: No lesions observed. IMPRESSION: 1. Chest pain, rule out cardiac etiology. 2. History of sarcoidosis. 3. Gastroesophageal reflux disease. 4. Hypertension. PLAN: The patient will be continued on IV fluids and further cardiac workup is pending. We will get his old CAT scans for comparison and also get a pulmonary function study at the bedside. An angiotensin converting enzyme level was ordered. Ventolin HFA inhaler 2 puffs q.i.d. p.r.n. for shortness of breath and if there is any significant change in the appearance of the CAT scan as compared to 2 years ago, further evaluation may be necessary including a bronchoscopy. We will continue with present medications including aspirin, Coreg, nitro and a followup chest x-ray to be done if he has any further shortness of breath. Thank you for this consultation. Kirby Garcia MD VJD/rt , 10:06 PM , 10:31 PM
[2017-06-07] VITALS (7 sets, daily range): BP systolic 114–145; BP diastolic 59–73; PULSE 56–74; RESP 16–20; TEMP 98–98.1; O2SAT 96–97
[2017-06-07] MEDS: ONDANSETRON HCL 4 MG/2 ML VIAL IVP PRN (00:55)
[2017-06-07] MEDS: MORPHINE SULFATE 4 MG/ML INJ IV PUSH PRN ×2 (00:55→08:24)
[2017-06-07 05:49] LABS: CHOLESTEROL/ HDL RATIO 3.94 RATIO
[2017-06-07] MEDS: NITROGLYCERIN 2% OINT 1 GM PACKET TOP SCH (06:42)
[2017-06-07] MEDS ORDERED: ATORVASTATIN 10 MG TAB PO ONE (07:15)
[2017-06-07] MEDS ORDERED: RAMIPRIL 2.5 MG CAP PO ONE (07:15)
[2017-06-07] MEDS: PANTOPRAZOLE SOD 40 MG DELAYED RELEASE TAB PO SCH (08:21)
[2017-06-07] MEDS: CARVEDILOL 3.125 MG TAB PO SCH (08:22)
[2017-06-07] MEDS: SODIUM CHLORIDE 0.9% FLUSH 10 ML FLUSH IV FLUSH SCH ×2 (09:00)
[2017-06-07] MEDS ORDERED: ASPIRIN EC 81 MG TABEC PO SCH (09:00)
[2017-06-07] MEDS ORDERED: RAMIPRIL 2.5 MG CAP PO SCH (09:00)
[2017-06-07] MEDS ORDERED: CARV3.125 PO (10:33)
[2017-06-07] MEDS ORDERED: NITR0.4S SL (10:33)
[2017-06-07] MEDS ORDERED: RAMI2.5C PO (10:33)
[2017-06-07] MEDS ORDERED: ECASA81 PO (10:33)
[2017-06-07] MEDS ORDERED: LIPI10TA PO (10:33)
--- NOTE | 2017-06-07 10:33 | HHI.DCPOC ---
Discharge Care Plan Diagnosis: (1) Non-ST elevation [place] (NSTEMI) (2) Sarcoidosis of lung Your Health Problems Are: Difficulty with ADL Exercise Tolerance Goals to Promote Your Health * To prevent worsening of your condition and complications * To maintain your health at the optimal level Directions to Meet Your Goals Take your medications as prescribed Follow your dietary instruction Follow activity as directed Keep your appointments as scheduled Take your immunizations and boosters as scheduled If your symptoms worsen call your PCP, if no PCP go to Urgent Care Center or Emergency Room Smoking is Dangerous to Your Health. Avoid second hand smoke Call the 24-hour hour crisis hotline for domestic abuse at Leonardo Ray MD Jun 07, 2017 10:33
--- NOTE | 2017-06-07 10:37 | HHI.PR ---
Subjective Remarks Follow-up coronary artery disease. Patient feeling okay denies chest pain. Cardiac catheterization results discussed with patient. Risk factor modification discussed with him. Discussed with nursing Objective Vitals Vital Signs Date Time Temp Pulse Resp B/P (MAP) Pulse Ox O2 Delivery O2 Flow Rate FiO2 06/07/17 08:29 20 06/07/17 08:02 98.0 74 20 145/73 (97) 97 06/07/17 04:00 67 06/07/17 03:25 98.1 64 16 123/59 (80) 96 06/07/17 00:00 69 06/06/17 23:08 98.4 70 16 116/61 (79) 96 06/06/17 20:00 71 06/06/17 19:54 97.8 70 16 133/65 (87) 94 06/06/17 17:00 97.7 64 18 129/78 (95) 95 06/06/17 15:06 98 Room Air 06/06/17 12:00 97.8 65 18 154/91 (112) 98 06/06/17 12:00 65 I/O 06/06/17 06/06/17 06/06/17 06/07/17 06/07/17 06/07/17 07:00 15:00 23:00 07:00 15:00 23:00 Intake Total 500 ml 240 ml 960 ml Output Total 400 ml 700 ml Balance 100 ml 240 ml 260 ml Intake Oral 240 ml 960 ml IV Total 500 ml Output Urine Total 400 ml 700 ml # Voids 2 4 # Bowel Movements 0 0 Result Diagram: 06/06/17 0420 06/06/17 0420 Imaging Last Impressions Chest X-Ray 06/05/172205 Signed Impressions: Service Date/Time: Monday, June 05, 2017 22:27 - CONCLUSION: No acute cardiopulmonary disease demonstrated. Alvarez Pena MD CT Angiography 06/05/172205 Signed Impressions: Service Date/Time: May 00:13 - CONCLUSION: 1. Scattered interstitial densities could be infectious or inflammatory. 2. Biapical densities greater left apex measuring 1.7 cm, likely scarring. Followup CT chest in 3 months recommended for stability. 3. No evidence for pulmonary embolism. 4. Mediastinal adenopathy likely secondary to patient's known sarcoidosis. 5. Right adrenal nodule likely adenoma. Kris Martínez MD ADDENDUM: Discussed the above study with Dr. Alvarez Alexandre from pulmonology. He informed me that the patient had a prior CT scan on an outpatient basis. Patient did in fact have a prior CT from 09-22-2015 from [facility]. The nodular densities and hilar adenopathy described above were present previously and are unchanged. The nodule in the right adrenal gland is also stable. Boubacar Metz MD Objective Remarks GENERAL: male sitting up in bed SKIN: No rashes, ecchymoses or lesions. Cool and dry. CARDIOVASCULAR: Regular rate and rhythm without murmurs, gallops, or rubs. No chest wall tenderness RESPIRATORY: Clear to auscultation. Breath sounds equal bilaterally. No wheezes , rales, or rhonchi. GASTROINTESTINAL: Abdomen soft, non-tender, nondistended. No guarding. MUSCULOSKELETAL: Extremities without clubbing, cyanosis, or edema. No joint tenderness, effusion, or edema noted. No calf tenderness. NEUROLOGICAL: Awake and alert. Cranial nerves II through XII intact. Motor and sensory grossly within normal limits. Normal speech. Procedures Cardiac cath A/P Problem List: (1) Non-ST elevation NM (NSTEMI) ICD Code: I21.4 - Non-ST elevation (NSTEMI) myocardial infarction Status: Acute Assessment and Plan 1. NSTEMI Cardiac catheterization with three-vessel disease EF of 70%. Cardiology recommends medical management continue aspirin, Coreg, ramipril and Lipitor. Risk factor modification 2. Hypertension. Stable ct Ramipril and Coreg 3. GERD. Continue home Protonix 4. Sarcoidosis, scattered interstitial densities could be infectious or inflammatory and biapical densities greater left apex measuring 1.7 cm centimeter. Op f/u with Dr Johnson 5. Hypokalemia. Status post repletion in the emergency department 6. Right adrenal gland adenoma. Outpatient follow-up Stable for discharge Discharge Planning Discharge patient to home Condition on discharge: Improved Regular Diet as tolerated Ad Lesvia activity no driving Rx written: Aspirin sublingual nitroglycerin, Lipitor, Coreg and ramipril Follow-up with primary care physician, cardiology and pulmonary Leonardo Ray MD Jun 07, 2017 10:37
--- NOTE | 2017-06-07 10:45 | PD.CARD.PN ---
Subjective Subjective Remarks assymptomatic, in nad Objective Medications Current Medications Medications (Trade) Dose Ordered Sig/Casa Route Start Time Stop Time Status Last Admin (NS Flush) 2 ml UNSCH PRN IV FLUSH 06/06/17 01:00 (NS Flush) 2 ml BID IV FLUSH 06/06/17 09:00 06/07/17 09:00 (Tylenol) 650 mg Q4H PRN PO 06/06/17 01:00 06/06/17 22:33 (Zofran Inj) 4 mg Q6H PRN IVP 06/06/17 01:00 06/07/17 00:55 (Narcan Inj) 0.4 mg UNSCH PRN IV PUSH 06/06/17 01:00 (Milk Of Magnesia Liq) 30 ml Q12H PRN PO 06/06/17 01:00 (Senokot) 17.2 mg Q12H PRN PO 06/06/17 01:00 (Dulcolax Supp) 10 mg DAILY PRN RECTAL 06/06/17 01:00 (Lactulose Liq) 30 ml DAILY PRN PO 06/06/17 01:00 (Morphine Inj) 4 mg Q3H PRN IV PUSH 06/06/17 01:45 06/07/17 08:24 (Protonix) 40 mg DAILY PO 06/06/17 09:00 06/07/17 08:21 (Coreg) 3.125 mg Q12HR PO 06/06/17 09:00 06/07/17 08:22 (Nitrostat Sl) 0.4 mg Q5M PRN SL 06/06/17 10:45 06/06/17 11:44 (NS Flush) 2 ml BID IV FLUSH 06/06/17 21:00 06/07/17 09:00 (NS Flush) 2 ml UNSCH PRN IV FLUSH 06/06/17 15:15 (Lipitor) 10 mg HS PO 06/07/17 21:00 (Altace) 2.5 mg DAILY PO 06/07/17 09:00 06/07/17 09:00 (Ecotrin Ec) 81 mg DAILY PO 06/07/17 09:00 06/07/17 08:21 Vital Signs / I&O Vital Signs Date Time Temp Pulse Resp B/P (MAP) Pulse Ox O2 Delivery O2 Flow Rate FiO2 06/07/17 08:29 20 06/07/17 08:02 98.0 74 20 145/73 (97) 97 06/07/17 04:00 67 06/07/17 03:25 98.1 64 16 123/59 (80) 96 06/07/17 00:00 69 06/06/17 23:08 98.4 70 16 116/61 (79) 96 06/06/17 20:00 71 06/06/17 19:54 97.8 70 16 133/65 (87) 94 06/06/17 17:00 97.7 64 18 129/78 (95) 95 06/06/17 15:06 98 Room Air 06/06/17 12:00 97.8 65 18 154/91 (112) 98 06/06/17 12:00 65 I/O 06/06/17 06/06/17 06/06/17 06/07/17 06/07/17 06/07/17 07:00 15:00 23:00 07:00 15:00 23:00 Intake Total 500 ml 240 ml 960 ml Output Total 400 ml 700 ml Balance 100 ml 240 ml 260 ml Intake Oral 240 ml 960 ml IV Total 500 ml Output Urine Total 400 ml 700 ml # Voids 2 4 # Bowel Movements 0 0 Physical Exam GENERAL: SKIN: Warm and dry. HEAD: Normocephalic. EYES: No scleral icterus. No injection or drainage. NECK: Supple, trachea midline. No JVD or lymphadenopathy. CARDIOVASCULAR: Regular rate and rhythm without murmurs, gallops, or rubs. RESPIRATORY: Breath sounds equal bilaterally. No accessory muscle use. GASTROINTESTINAL: Abdomen soft, non-tender, nondistended. MUSCULOSKELETAL: No cyanosis, or edema. BACK: Nontender without obvious deformity. No CVA tenderness. Laboratory Laboratory Tests Test 06/06/17 11:10 06/07/17 04:05 Total Creatine Kinase 95 U/L Troponin I 0.02 NG/ML Triglycerides Level 128 MG/DL Cholesterol Level 134 MG/DL LDL Cholesterol 74 MG/DL HDL Cholesterol 34.0 MG/DL Cholesterol/HDL Ratio 3.94 RATIO Assessment and Plan Problem List: (1) Non-ST elevation ND (NSTEMI) ICD Codes: I21.4 - Non-ST elevation (NSTEMI) myocardial infarction Status: Acute (2) Sarcoidosis of lung ICD Codes: D86.0 - Sarcoidosis of lung Status: Acute Assessment and Plan NSTEMI - suspect elevated troponin due to increased demand from htn, continue aspirin, coreg, add lipitor, altace, patient requests to f/u with Dr Brandon, advised to f/u with Garrett Calhoun MD Jun 07, 2017 10:45
[2017-06-07] MEDS ORDERED: ATORVASTATIN 10 MG TAB PO SCH (21:00)
== END 2017-06-07 14:30 | disposition home or self-care (01) | DRG 282 ==
LOC: NEPE 21:52 → NEDA 06-06 00:49 → N04A 06-06 03:59
PROVIDERS: ADMIT Internal Medicine; ATTEND Internal Medicine
PROC: B211YZZ Fluoroscopy of Multiple Coronary Arteries using Other Contrast (ICD-10-PCS; 2017-06-06)
PROC: B215YZZ Fluoroscopy of Left Heart using Other Contrast (ICD-10-PCS; 2017-06-06)
PROC: 4A023N7 Measurement of Cardiac Sampling and Pressure, Left Heart, Percutaneous Approach (ICD-10-PCS; principal; 2017-06-06 14:15)
DX: I21.4 Non-ST elevation (NSTEMI) myocardial infarction (principal); I10 Essential (primary) hypertension; D86.0 Sarcoidosis of lung; K21.9 Gastro-esophageal reflux disease without esophagitis; E87.6 Hypokalemia; D35.01 Benign neoplasm of right adrenal gland; I25.10 Atherosclerotic heart disease of native coronary artery without angina pectoris; R73.9 Hyperglycemia, unspecified; Z88.0 Allergy status to penicillin; Z79.899 Other long term (current) drug therapy
CPT/HCPCS: 71045; 71275; 80048; 80053; 80061; 82164; 82550; 82552; 83735; 84484; 85025; 85610; 85730; 93005; 93458; 99152; 99153; C1769; C1893; C9113; J1644; J2250; J2270; J2405; J3010; J7030; J7040; Q9967

== ENCOUNTER 2018-04-05 22:34 | Observation (INO) ==
[2018-04-05] MEDS ORDERED: dilTIAZem Inj 125 MG in Sodium Chlor 0.9% Inj 100 ML IV.CONT PRN (23:27)
[2018-04-05 23:29] LABS: Baso # (Auto) 0.1 th/mm3 (0.0-0.2); Baso % (Auto) 1.1 % (0.0-2.0); Eos # (Auto) 0.2 th/mm3 (0.0-0.4); Hematocrit 43.7 % (39.0-51.0); Hemoglobin 14.4 gm/dL (13.0-17.0); Lymph # (Auto) 2.1 th/mm3 (1.0-4.8); Lymph % (Auto) 27.7 % (9.0-44.0); Mean Corpuscular HGB Conc 32.9 % (32.0-36.0); Mean Corpuscular Volume 91.2 fL (80.0-100.0); Mean Platelet Volume 8.7 fL (7.0-11.0); Mono # (Auto) 0.9 th/mm3 (0.0-0.9); Mono % (Auto) 11.8 % (0.0-8.0); Neut # (Auto) 4.5 th/mm3 (1.8-7.7); Neut % (Auto) 57.4 % (16.0-70.0); Platelet Count 188 th/mm3 (150-450); Red Blood Count 4.79 mil/mm3 (4.50-5.90); Red Cell Distribution Width 13.6 % (11.6-17.2); White Blood Count 7.7 th/mm3 (4.0-11.0)
--- NOTE | 2018-04-05 23:29 | ED ---
HPI General Chief Complaint: Arrhythmia / Palpitations Stated Complaint: Poss Heart Attack Time Seen by Provider: 04/05/18 23:27 Source: patient Mode of arrival: ambulatory Limitations: no limitations History of Present Illness HPI narrative: 63-year-old male patient with history of CAD without stenting, hypertension, presents to the ER today because he started having chest discomfort and palpitations this evening, noticed that his heart rates were going up and down and sometimes into the 130s. He denies any dizziness, shortness of breath, or any other symptoms. He reports no previous history of atrial fibrillation. Modifying Factors: None Associated Signs & Symptoms: Chest discomfort, palpitations, fast heart rates Risk Factors: CAD Related Data Home Medications Medication Instructions Recorded Confirmed amlodipine 5 mg PO DAILY 04/05/18 04/05/18 atorvastatin 10 mg PO DAILY 04/05/18 04/05/18 desloratadine 5 mg PO DAILY 04/05/18 04/05/18 hydrochlorothiazide 25 mg PO DAILY 04/05/18 04/05/18 hydroxychloroquine 200 mg PO BID 04/05/18 04/05/18 losartan 50 mg PO BID 04/05/18 04/05/18 metoprolol succinate 50 mg PO DAILY 04/05/18 04/05/18 pantoprazole 40 mg PO DAILY 04/05/18 04/05/18 Allergies Allergy/AdvReac Type Severity Reaction Status Date / Time penicillin G Allergy Intermediate ITCHING Unverified 04/05/18 22:38 Review of Systems ROS: all other systems reviewed are negative [facility] Medical History Medical History Hypertension (Acute) Parathyroid abnormality (Acute) Right adrenal mass (Acute) Sarcoidosis (Acute) Surgical History Surgical History H/O knee surgery (Acute) H/O laparoscopy (Acute) History of lung biopsy (Acute) Hx of cardiac cath (Acute) Social History Social History Substance History: No History of Abuse Second Hand Smoke Exposure: No Smoking Status: Never smoker How Often Do You Have a Drink Containing Alcohol: Monthly or less Recent Travel in [facility] within the Last 8 Weeks: No Recent Out of Country Travel within the Last 8 Weeks: No Immunization History Tetanus Immunization: <5 Years Exam Narrative Exam Narrative: GENERAL: Well-developed elderly male patient currently in mild distress. Awake and oriented x3. SKIN: Focused skin assessment warm/dry. HEAD: Atraumatic. Normocephalic. EYES: Pupils equal and round. No scleral icterus. No injection or drainage. ENT: No nasal bleeding or discharge. Mucous membranes pink and moist. NECK: Trachea midline. No JVD. CARDIOVASCULAR: Fast and irregularly irregular. RESPIRATORY: No accessory muscle use. Clear to auscultation. Breath sounds equal bilaterally. GASTROINTESTINAL: Abdomen soft, non-tender, nondistended. Hepatic and splenic margins not palpable. MUSCULOSKELETAL: No obvious deformities. No clubbing. No cyanosis. No edema. NEUROLOGICAL: Awake and alert. No obvious cranial nerve deficits. Motor grossly within normal limits. Normal speech. PSYCHIATRIC: Appropriate mood and affect; insight and judgment normal. Course Initial Documented Vital Signs Temperature 97.6 F 04/05/18 22:38 Pulse Rate 122 H 04/05/18 22:38 Respiratory Rate 16 04/05/18 22:38 Blood Pressure 141/82 H 04/05/18 22:38 Pulse Oximetry 97 04/05/18 22:38 Last Documented Vital Signs Temperature 97.6 F 04/05/18 22:38 Pulse Rate 72 04/06/18 00:22 Respiratory Rate 16 04/05/18 23:05 Blood Pressure 141/82 H 04/05/18 23:05 Pulse Oximetry 98 04/05/18 23:06 Medical Decision Making [facility] Narrative Medical decision making narrative: He was initially in atrial flutter when he came into the ER. Cardizem had been ordered for him but by the time the nurse gone into the room to give the Cardizem, his heart rate had gone down to the 70s and Cardizem was not given. On reevaluation of his monitors, he appears to have gone back to normal sinus rhythm. Lab work did show a low potassium and p.o. potassium was given. Patient had taken his own aspirin prior to arrival. At this point, plan would be to admit him for further evaluation and treatment of new onset A. fib. Case was discussed with Dr. Lincoln for admission. Medical Screen Exam Complete: Yes Emergency Medical Condition: Yes Differential Diagnosis Differential Diagnosis: ACS versus A. fib versus other dysrhythmias versus electrolyte abnormalities Lab Data Lab results reviewed: Yes I reviewed the patient's lab results. Result diagrams: 04/05/18 23:00 04/05/18 23:00 Lab Results 04/05/18 04/05/18 Range/Units 23:00 23:00 WBC 7.7 (4.0-11.0) th/mm3 RBC 4.79 (4.50-5.90) mil/mm3 Hgb 14.4 (13.0-17.0) gm/dL Hct 43.7 (39.0-51.0) % MCV 91.2 (80.0-100.0) fL MCH 30.0 (27.0-34.0) pg MCHC 32.9 (32.0-36.0) % RDW 13.6 (11.6-17.2) % Plt Count 188 (150-450) th/mm3 MPV 8.7 (7.0-11.0) fL Neut % (Auto) 57.4 (16.0-70.0) % Lymph % (Auto) 27.7 (9.0-44.0) % [place] % (Auto) 11.8 H (0.0-8.0) % Eos % (Auto) 2.0 (0.0-4.0) % Baso % (Auto) 1.1 (0.0-2.0) % Neut # (Auto) 4.5 (1.8-7.7) th/mm3 Lymph # (Auto) 2.1 (1.0-4.8) th/mm3 [place] # (Auto) 0.9 (0.0-0.9) th/mm3 Eos # (Auto) 0.2 (0.0-0.4) th/mm3 Baso # (Auto) 0.1 (0.0-0.2) th/mm3 WBC Differential . Differential Comment Auto diff final Sodium 142 (136-145) meq/L Potassium 3.1 L (3.5-5.1) meq/L Chloride 109 H (98-107) meq/L Carbon Dioxide 23.5 (21.0-32.0) meq/L Anion Gap 10 (5-15) meq/L BUN 23 H (7-18) mg/dL Creatinine 1.13 (0.60-1.30) mg/dL Estimated GFR 66 L (>89) mL/min Random Glucose 101 (74-106) mg/dL Calcium 9.4 (8.5-10.1) mg/dL Total Creatine Kinase 140 (39-308) U/L CK-MB (CK-2) 2.3 (0.5-3.6) ng/mL Troponin I Less than 0.02 L (0.02-0.05) ng/mL ECG Data Attestation: I personally reviewed and interpreted this ECG as follows: Interpretation: EKG shows atrial flutter with rapid ventricular response at a rate of 107 bpm. No signs of acute ST changes. Discharge Plan Discharge Order Discharge Orders: ED Use Only Admit Order (Routine); Ordered 04/06/18 Ordered By: Mariam Browne Discharge Details Anticipated Discharge Date: 04/06/18 Physicians Team ED Provider: Mariam Browne Primary Care Provider: Aman Walter Rxs /Orders / Referrals /Forms Prescriptions: No Action losartan 50 mg Tablet 50 mg PO BID RF: 0 atorvastatin 10 mg Tablet 10 mg PO DAILY RF: 0 metoprolol succinate 50 mg Tablet Extended Release 24 Hr 50 mg PO DAILY RF: 0 amlodipine 5 mg Tablet 5 mg PO DAILY RF: 0 desloratadine 5 mg Tablet 5 mg PO DAILY RF: 0 pantoprazole 40 mg Tablet,Delayed Release (Dr/Ec) 40 mg PO DAILY RF: 0 hydrochlorothiazide 25 mg Tablet 25 mg PO DAILY RF: 0 hydroxychloroquine 200 mg Tablet 200 mg PO BID RF: 0 Discharge Interventions Interventions: Vital Signs Last Done: 04/06/18 00:22 Status ED Status: With Doctor
[2018-04-05 23:54] LABS: Anion Gap 10 meq/L (5-15); Blood Urea Nitrogen 23 mg/dL (7-18); Calcium 9.4 mg/dL (8.5-10.1); Carbon Dioxide 23.5 meq/L (21.0-32.0); Chloride 109 meq/L (98-107); Glomerular Filtration Rate 66 mL/min (>89); Glucose,Random 101 mg/dL (74-106); Potassium 3.1 meq/L (3.5-5.1); Sodium 142 meq/L (136-145)
[2018-04-05 23:59] LABS: Creatine Kinase 140 U/L (39-308)
[2018-04-06 00:11] LABS: Creatine Kinase MB 2.3 ng/mL (0.5-3.6)
[2018-04-06] MEDS ORDERED: Potassium Chloride 25 MEQ Effervescent Tablet PO ONE (00:12)
[2018-04-06] MEDS ORDERED: Morphine Sulfate Inj 2 MG/ML Vial IV.PUSH PRN (00:29)
[2018-04-06] MEDS ORDERED: Bisacodyl 10 MG Supp RECTAL PRN (00:29)
[2018-04-06] MEDS ORDERED: Acetaminophen 325 MG Tablet PO PRN (00:29)
[2018-04-06] MEDS: Sod Chloride 0.9% Inj 1,000 ML IV.CONT SCH ×2 (00:50→11:00)
--- NOTE | 2018-04-06 01:16 | P.HPIM ---
History of Present Illness Primary Care Physician: Aman Walter MD History of Present Illness: This is a 63-year-old male with a PMH of HTN and CAD who presented to ER with complaints of chest discomfort and palpitations. States he was sitting watching TV when he felt mild chest discomfort, then looked at his FitBit and noticed his HR went from 70's to 140's. No h/o similar symptoms. Follows w/ Dr Brandon for CAD, h/o NSTEMI 05/17/17, Cardiac Cath w/ mild to moderate 3-vessel disease w/ right dominance, EF 70%. On arrival to ER noted to be in A-flutter, was to be started on Cardizem, however had spontaneous conversion to NSR. Currently without complaints. BP 141/82, HR 72, O2 sat 98% on RA, Afebrile. CBC unremarkable. Chemistry unremarkable except for K+ 3.1. Troponin negative. Diagnosis (1) Chest pain: (2) Atrial flutter: (3) Hypokalemia: Review of Systems PAST FAMILY HISTORY: Reviewed. No h/o DM or CAD Review of Systems: all other systems reviewed are negative [facility] Medical History Medical History Hypertension (Acute) Parathyroid abnormality (Acute) Right adrenal mass (Acute) Sarcoidosis (Acute) Surgical History Surgical History H/O knee surgery (Acute) H/O laparoscopy (Acute) History of lung biopsy (Acute) Hx of cardiac cath (Acute) Social History Social History Substance History: No History of Abuse Second Hand Smoke Exposure: No Smoking Status: Never smoker How Often Do You Have a Drink Containing Alcohol: Monthly or less Recent Travel in [facility] within the Last 8 Weeks: No Recent Out of Country Travel within the Last 8 Weeks: No Immunization History Tetanus Immunization: <5 Years Medications and Allergies Allergies Allergy/AdvReac Type Severity Reaction Status Date / Time penicillin G Allergy Intermediate ITCHING Unverified 04/05/18 22:38 Home Medications Medication Instructions Recorded Confirmed Type amlodipine 5 mg PO DAILY 04/05/18 04/05/18 History atorvastatin 10 mg PO DAILY 04/05/18 04/05/18 History desloratadine 5 mg PO DAILY 04/05/18 04/05/18 History hydrochlorothiazide 25 mg PO DAILY 04/05/18 04/05/18 History hydroxychloroquine 200 mg PO BID 04/05/18 04/05/18 History losartan 50 mg PO BID 04/05/18 04/05/18 History metoprolol succinate 50 mg PO DAILY 04/05/18 04/05/18 History pantoprazole 40 mg PO DAILY 04/05/18 04/05/18 History Active Medications: Active Medications Acetaminophen (Tylenol) 650 mg PO Q4H PRN PRN Reason: Temp > 100.4 Al Hydroxide/Mg Hydroxide (Milk Of Magnesia Liq) 30 ml PO Q12H PRN PRN Reason: Mild Constipation Aspirin (Ecotrin) 81 mg PO DAILY [facility] Atorvastatin Calcium (Lipitor) 10 mg PO DAILY [facility] Bisacodyl (Dulcolax Supp) 10 mg RECTAL DAILY PRN PRN Reason: SEVERE CONSITIPATION Hydroxychloroquine Sulfate (Plaquenil) 200 mg PO BID [facility] Diltiazem HCl 125 mg/ Sodium (Chloride) 125 mls @ 5 mls/hr IV.CONT TITRATE PRN ; Protocol PRN Reason: Per Protocol Sodium Chloride (Ns Inj) 1,000 mls @ 100 mls/hr IV.CONT .Q10H [facility] Last Admin: 04/06/18 00:50 Dose: 100 mls/hr Lactulose (Lactulose Liq) 30 ml PO DAILY PRN PRN Reason: SEVERE CONSITIPATION Metoprolol Tartrate (Lopressor) 25 mg PO BID [facility] Morphine Sulfate (Morphine Inj) 2 mg IV.PUSH Q4H PRN PRN Reason: PAIN SCALE 6 TO 10 Nitroglycerin (Nitro-Bid 2% Oint) 0.5 inch TOPICAL Q6HR PRN PRN Reason: Chest Pain Ondansetron HCl (Zofran Inj) 4 mg IV.PUSH Q6H PRN PRN Reason: NAUSEA OR VOMITING Pantoprazole Sodium (Protonix) 40 mg PO DAILY [facility] Senna/Docusate Sodium (Jessie-Colace) 1 tab PO BID [facility] Sennosides (Senokot) 17.2 mg PO Q12H PRN PRN Reason: Moderate Constipation Sodium Chloride (Ns Flush) 2 ml IV.FLUSH BID ANABEL Sodium Chloride (Ns Flush) 2 ml IV.FLUSH PRN PRN PRN Reason: FLUSH AFTER USING IV ACCESS Physical Exam Vital signs: Vital Signs 04/05/18 22:38 04/05/18 23:04 04/05/18 23:05 Temperature 97.6 F Pulse Rate 122 H 113 H 109 H Respiratory Rate 16 19 16 Blood Pressure 141/82 H 119/90 141/82 H Pulse Oximetry 97 97 04/05/18 23:06 04/06/18 00:22 Temperature Pulse Rate 72 Respiratory Rate Blood Pressure Pulse Oximetry 98 Intake & Output 04/05/18 04/05/18 04/06/18 06:59 18:59 06:59 Weight 114.759 kg Narrative: PE: GENERAL: Very pleasant middle-aged white male in no acute distress. at bedside. SKIN: Focused skin assessment warm and dry. HEENT: PERRLA, EOMI. No scleral icterus or conjunctival pallor. No lid lag or facial droop. CARDIOVASCULAR: Currently in NSR, regular rate and rhythm. No obvious murmurs to auscultation. No chest tenderness to palpation. RESPIRATORY: No obvious rhonchi or wheezing. Clear to auscultation. Breath sounds equal bilaterally. GASTROINTESTINAL: Abdomen soft, non-tender, nondistended. BS normal. MUSCULOSKELETAL: Extremities without clubbing, cyanosis, or edema. No obvious deformities. NEUROLOGICAL: Awake, alert and oriented x4. No focal neurologic deficits. Moving both upper and lower extremities spontaneously. PSYCHIATRIC: Appropriate mood and affect. Insight and judgment normal. Results Labs CBC & Chem 7: 04/05/18 23:00 04/05/18 23:00 Caprini VTE Risk Assessment Caprini VTE Risk Assessment: No/Low Risk (score <= 1) Caprini Risk Assessment Model: Point Value = 1 Point Value = 2 Point Value = 3 Point Value = 5 Age 41-60 Minor surgery BMI > 25 kg/m2 Swollen legs Varicose veins or History of unexplained or recurrent spontaneous Oral contraceptives or hormone replacement Sepsis (< 1 month) Serious lung disease, including pneumonia (< 1 month) Abnormal pulmonary function Acute myocardial infarction Congestive heart failure (< 1 month) History of inflammatory bowel disease Medical patient at bed rest Age 61-74 Arthroscopic surgery Major open surgery (> 45 min) Laparoscopic surgery (> 45 min) Malignancy Confined to bed (> 72 hours) Immobilizing plaster cast Central venous access Age >= 75 History of VTE Family history of VTE Factor V Leiden Prothrombin [id number] Lupus anticoagulant Anticardiolipin antibodies Elevated serum homocysteine Heparin-induced thrombocytopenia Other congenital or acquired thrombophilia Stroke (< 1 month) Elective arthroplasty Hip, pelvis, or leg fracture Acute spinal cord injury (< 1 month) Prophylaxis Regimen: Total Risk Factor Score Risk Level Prophylaxis Regimen 0-1 Low Early ambulation 2 Moderate Order ONE of the following: *Sequential Compression Device (SCD) *Heparin 5000 units SQ BID 3-4 Higher Order ONE of the following medications: *Heparin 5000 units SQ TID *Enoxaparin/Lovenox 40 mg SQ daily (WT < 150 kg, CrCl > 30 mL/min) *Enoxaparin/Lovenox 30 mg SQ daily (WT < 150 kg, CrCl > 10-29 mL/min) *Enoxaparin/Lovenox 30 mg SQ BID (WT < 150 kg, CrCl > 30 mL/min) AND/OR *Sequential Compression Device (SCD) 5 or more Highest Order ONE of the following medications: *Heparin 5000 units SQ TID (Preferred with Epidurals) *Enoxaparin/Lovenox 40 mg SQ daily (WT < 150 kg, CrCl > 30 mL/min) *Enoxaparin/Lovenox 30 mg SQ daily (WT < 150 kg, CrCl > 10-29 mL/min) *Enoxaparin/Lovenox 30 mg SQ BID (WT < 150 kg, CrCl > 30 mL/min) AND *Sequential Compression Device (SCD) Assessment and Plan (1) Chest pain: Code(s): R07.9 - Chest pain, unspecified Status: Acute (2) Atrial flutter: Code(s): I48.92 - Unspecified atrial flutter Status: Acute (3) Hypokalemia: Code(s): E87.6 - Hypokalemia Status: Acute Plan A/P: 1. A-flutter: c/o palpitations, noted to be in A-flutter on arrival w/ HR 140' s, spontaneous conversion back to NSR, currently without complaints. Admit for observation, telemetry, check Echo to eval for valvular abnormality/ cardiomyopathy. Resume home Metoprolol. Follows w/ Dr. Brandon, will consult for further eval/recommendations. 2. Chest Pain: reports mostly discomfort w/ episode of palpitations, currently chest pain free, initial trop negative, check serial cardiac enzymes to eval for underlying ischemia. ASA, Statin, Metoprolol, NTG/Morphine prn. Check Lipid profile 3. Hypokalemia: K+ 3.1, s/p replacement, will recheck and give additional replacement as needed. 4. DVT Prophylaxis: SCD/teds 5. Social for DC planning as needed. 6. Case discussed at length with the ER physician, labs/records/imaging reviewed by me.
--- NOTE | 2018-04-06 01:54 | XR ---
EXAM DATE: 04/06/2018 1:32 AM EST AGE/SEX: 63 years / Male INDICATIONS: Shortness of breath. Chest pain. CLINICAL DATA: This is the patient's initial encounter. Patient reports that signs and symptoms have been present for 1 day and indicates a pain score of 1/10. MEDICAL/SURGICAL HISTORY: None. None. COMPARISON: No prior exams available for comparison. FINDINGS: A single AP view of the chest demonstrates the lungs to be symmetrically aerated without evidence of mass, infiltrate or effusion. The cardiomediastinal contours are unremarkable. Osseous structures a re intact. CONCLUSION: The lungs are clear. Electronically signed by: Javier Kaiser MD Board Certified Radiologist 04/06/2018 1:53 AM EST
--- NOTE | 2018-04-06 08:19 | P.PNIM ---
Subjective Interval history: Follow-up for a. flutter. Patient reports feeling much better today. Denies any further episodes of palpitations or chest pain. Patient states he did have some substernal chest pressure during the a flutter yesterday, now resolved. He denies any lightheadedness or dizziness. Denies any shortness of breath. Denies any palpitations today. He denies any history of arrhythmia. Physical Exam Vital signs: Vital Signs 04/05/18 22:38 04/05/18 23:04 04/05/18 23:05 Temperature 97.6 F Pulse Rate 122 H 113 H 109 H Respiratory Rate 16 19 16 Blood Pressure 141/82 H 119/90 141/82 H Pulse Oximetry 97 97 04/05/18 23:06 04/06/18 00:22 04/06/18 01:55 Temperature Pulse Rate 72 89 Respiratory Rate 16 Blood Pressure 142/92 H Pulse Oximetry 98 04/06/18 04:00 04/06/18 07:51 Temperature 97.9 F Pulse Rate 67 61 Respiratory Rate 16 18 Blood Pressure 106/51 L 105/66 Pulse Oximetry 96 96 Intake & Output 04/05/18 04/06/18 04/06/18 18:59 06:59 18:59 Intake Total 120 / 120 Balance 120 / 120 Weight 114.759 kg Intake: Oral 120 / 120 Other: # Voids 1 Date of Last Bowel Movement 04/05/18 Weight On Admission 114.759 kg Narrative: GENERAL: Well-nourished, well-developed pleasant middle-age man patient in [facility]. SKIN: Warm and dry. No rash. HEENT: Normocephalic. Atraumatic. Pupils equal and round. Mucous membranes pink and moist. CARDIOVASCULAR: Regular rate and rhythm. No murmur appreciated. Chest nontender to palpation. RESPIRATORY: No accessory muscle use. Clear to auscultation. Breath sounds equal bilaterally. GASTROINTESTINAL: Abdomen soft, non-tender, nondistended. Normoactive bowel sounds x4. MUSCULOSKELETAL: No obvious deformities. Extremities without clubbing, cyanosis , or edema. NEUROLOGICAL: Awake and alert. No obvious cranial nerve deficits. Moving all extremities spontaneously. Normal speech. PSYCHIATRIC: Appropriate mood and affect; insight and judgment normal. Results Labs CBC & Chem 7: 04/06/18 08:35 04/06/18 08:35 Imaging Imaging: Impressions Chest X-Ray 04/06/18 00:00 CONCLUSION: The lungs are clear. Assessment and Plan (1) Chest pain: Code(s): R07.9 - Chest pain, unspecified Status: Acute (2) Atrial flutter: Code(s): I48.92 - Unspecified atrial flutter Status: Acute (3) Hypokalemia: Code(s): E87.6 - Hypokalemia Status: Acute Plan 63-year-old male with a PMH of HTN and CAD who presented to ER with complaints of chest discomfort and palpitations. A-flutter: c/o palpitations, noted to be in A-flutter on arrival w/ HR 140's, spontaneous conversion back to NSR, currently without complaints. -Monitor on telemetry -Echo ordered however per Dr. Ford can cancel and have done as outpatient in Dr. Brandon's office -Resume home Metoprolol. -Has remained in NSR since aflutter resolved spontaneously in the ER -Consulted patient's butt sawyer Dr. Brandon, seen by Dr. Ford, started on Xarelto 20mg daily, cleared for discharge home, outpatient f/up with Dr. Brandon Chest Pain: atypical, described mostly as a discomfort w/ episode of palpitations, currently chest pain free -initial trop negative, check serial cardiac enzymes to eval for underlying ischemia. -ASA, Statin, Metoprolol, NTG/Morphine prn. -Lipid profile wnl - on statin -Resolved -Cleared for d/c by cardiology Hypokalemia: K+ 3.1 -Given po KCl replacement -Repeat K 3.4, given additional replacement DVT Prophylaxis: SCD/teds, now on Xarelto Discharge Planning: Discharge patient to home Condition on discharge: Stable Heart Healthy Diet as tolerated Ad Lesvia activity Rx written: Xarelto 20mg daily Follow-up with primary care physician and butt sawyer Dr. Brandon Progress Note: Quality VTE Deep Vein Thrombosis/Pulmonary Embolism Present on Admission: No
[2018-04-06 08:48] LABS: Baso # (Auto) 0.1 th/mm3 (0.0-0.2); Baso % (Auto) 1.2 % (0.0-2.0); Eos # (Auto) 0.2 th/mm3 (0.0-0.4); Eos % (Auto) 2.7 % (0.0-4.0); Hematocrit 41.2 % (39.0-51.0); Hemoglobin 13.8 gm/dL (13.0-17.0); Lymph # (Auto) 1.6 th/mm3 (1.0-4.8); Lymph % (Auto) 26.8 % (9.0-44.0); Mean Corpuscular HGB Conc 33.6 % (32.0-36.0); Mean Corpuscular Hemoglobin 30.5 pg (27.0-34.0); Mean Corpuscular Volume 90.7 fL (80.0-100.0); Mean Platelet Volume 8.5 fL (7.0-11.0); Mono # (Auto) 0.7 th/mm3 (0.0-0.9); Mono % (Auto) 11.1 % (0.0-8.0); Neut # (Auto) 3.5 th/mm3 (1.8-7.7); Neut % (Auto) 58.2 % (16.0-70.0); Platelet Count 175 th/mm3 (150-450); Red Blood Count 4.54 mil/mm3 (4.50-5.90)
[2018-04-06] MEDS ORDERED: Hydroxychloroquine 200 MG Tablet PO SCH (09:00)
[2018-04-06] MEDS ORDERED: Metoprolol Tartrate 25 MG Tablet PO SCH (09:00)
[2018-04-06] MEDS ORDERED: Senna/Docusate Sodium 8.6/50 MG Tablet PO SCH (09:00)
[2018-04-06 09:14] LABS: Albumin 3.1 g/dL (3.4-5.0); Anion Gap 8 meq/L (5-15); Aspartate Aminotransferase 22 U/L (15-37); Blood Urea Nitrogen 28 mg/dL (7-18); Calcium 9.6 mg/dL (8.5-10.1); Carbon Dioxide 24.5 meq/L (21.0-32.0); Chloride 109 meq/L (98-107); Glomerular Filtration Rate 81 mL/min (>89); Glucose,Random 95 mg/dL (74-106); Potassium 3.4 meq/L (3.5-5.1); Sodium 141 meq/L (136-145)
[2018-04-06 09:15] LABS: Alanine Aminotransferase 40 U/L (12-78); Cholesterol 103 mg/dL (120-200); Triglycerides 65 mg/dL (42-150)
[2018-04-06 09:21] LABS: Alkaline Phosphatase 97 U/L (45-117); Chol/HDL Ratio 2.42 Ratio; HDL Cholesterol 42.4 mg/dL (40.0-60.0); LDL Cholesterol,Calculated 48 mg/dL (0-99); Total Protein 6.7 g/dL (6.4-8.2)
--- NOTE | 2018-04-06 09:49 | ECG ---
Date Performed: 04/05/2018 Time Performed: 22:54:55 PTAGE: 63 years EKG: ATRIAL FLUTTER WITH RAPID VENTRICULAR RESPONSE INCOMPLETE RIGHT BUNDLE BRANCH BLOCK ABNORMA L RHYTHM ECG PREVIOUS TRACING : 06/06/2017 10.47 Compared to previous tracing, SR no longer present DOCTOR: Ame Ford Interpretating Date/Time 04/06/2018 09:48:15
--- NOTE | 2018-04-06 10:52 | US ---
EXAM DATE: 04/06/2018 10:41 AM EST AGE/SEX: 63 years / Male INDICATIONS: Syncope. CLINICAL DATA: This is the patient's initial encounter. Patient reports that signs and symptoms have been present for 1 day and indicates a pain score of 0/10. MEDICAL/SURGICAL HISTORY: Hypertension. Parathyroid abnormality. Right adrenal mass. Sarcoidosi s. . History of knee surgery. History of laparoscopy. History of lung biopsy. History of cardiac cat h. COMPARISON: No prior exams available for comparison. VELOCITY PARAMETERS: ICA/CCA Ratio: Right 1.2 , Left 0.9 ICA: Right 94 cm/sec, Left 91 cm/sec CCA: Right 87 cm/sec, Left 97 cm/sec ECA: Right 135 cm/sec, Left 131 cm/sec Vertebral: Right 80 cm/sec antegrade, Left 51 cm/sec antegrade FINDINGS: Right Carotid: No significant plaque is visualized.The waveforms are within normal limits. Left Carotid: No significant plaque is visualized. The waveforms are within normal limits. Other: None. CONCLUSION: Negative for hemodynamically significant stenosis Electronically signed by: José Antonio Ruiz MD Board Certified Radiologist 04/06/2018 10:51 AM EST
[2018-04-06 11:38] VITALS: BP 119/67; PULSE 63; RESP 16; TEMP 97.6; O2SAT 97
[2018-04-06] MEDS ORDERED: Rivaroxaban 20 MG Tablet PO SCH (12:00)
--- NOTE | 2018-04-06 13:27 | MB ---
cc: Ame Ford MD DATE: 04/06/2018 HISTORY OF PRESENT ILLNESS: Mr. Arias is a very pleasant 63-year-old white male with history of coronary artery disease. Last night, he found that his heart rate was fast, looking at his Fitbit. He had mild palpitations. He also had chest pain radiating in his jaw. He has history of non-ST elevation myocardial infarction in 05/2014. Cardiac catheterization showed mild to moderate coronary artery disease with ejection fraction of 70%. He is a patient of Dr. Brandon. The patient subsequently converted to sinus rhythm, and has had no recurrent symptoms. He ruled out for myocardial infarction by enzymes. PAST MEDICAL HISTORY: Positive for coronary artery disease as above, hypertension, parathyroid disease, right adrenal mass, sarcoidosis. PAST SURGICAL HISTORY: Knee surgery, laparoscopic lung biopsy. MEDICATIONS AT HOME: Include amlodipine, atorvastatin, desloratidine, hydrochlorothiazide, hydroxychloroquine, losartan, metoprolol, pantoprazole. ALLERGIES: PENICILLIN. SOCIAL HISTORY: The patient smoked. He drinks alcohol infrequently. FAMILY HISTORY: Positive for stroke in his mother. REVIEW OF SYSTEMS: Otherwise negative. PHYSICAL EXAMINATION: VITAL SIGNS: Blood pressure 106/51, pulse 71 and regular. HEENT: Negative. NECK: 2+ carotid upstrokes, no bruits. LUNGS: Clear. HEART: Regular with no murmur, gallop or rub. ABDOMEN: Soft. EXTREMITIES: Without edema. 2+ pulses. NEUROLOGIC: Nonfocal. DIAGNOSTIC DATA: EKG was reviewed and shows atrial flutter with a variable block. Telemetry now shows sinus rhythm. Labs: Hemoglobin 13.8. Potassium 3.4, creatinine 1.0. Troponin negative x3. LDL 48, HDL 42. DIAGNOSES: 1. Atrial flutter with rapid ventricular response. 2. Unspecified angina. 3. Mild to moderate coronary artery disease. 4. Hypertension. DISPOSITION: Mr. Arias spontaneously converted to sinus rhythm. He will be started on Xarelto 20 mg a day. Otherwise, I recommend to continue his current medical program. Recommend to replace his potassium. He can be discharged home from cardiology standpoint. He will be scheduled for followup with Dr. Brandon in his office after discharge. MD REHAN Mayorga/rh , 10:51 AM , 11:00 AM FLORENCIO
== END 2018-04-06 11:52 | disposition home or self-care (01) ==
LOC: NEPD 22:34 → NEDA 22:34 → NEPFCDU 04-06 02:04
PROVIDERS: ADMIT Hospitalist; ATTEND Hospitalist
DX: I25.119 Atherosclerotic heart disease of native coronary artery with unspecified angina pectoris; I10 Essential (primary) hypertension; I48.92 Unspecified atrial flutter; I25.2 Old myocardial infarction; Z79.899 Other long term (current) drug therapy; R07.89 Other chest pain; E87.6 Hypokalemia; Z87.891 Personal history of nicotine dependence; R55 Syncope and collapse
CPT/HCPCS: 71010; 71045; 80048; 80053; 80061; 82550; 82552; 84484; 85025; 93005; 93880; 96360; 96361; 99285; G0378; J7030